=== PATIENT | male | born 1965 | race Caucasian/White ===

== ENCOUNTER → 2016-10-04 | Outpatient (CLI) | payer BC ==
[~2016-10-04] MED LIST: /CIPR75TA OR; /FENT50PA TD; /ROPI25TA PO; /TAMS4CA; /TAMS4CA PO; ACET500C PO; ACET65TA OR; ALLE25CA OR; ALLEGRA PO; ALLOPOW4 PO; AVOD0.5C; CIPR500T19; CLAR5CHW; CLAR5CHW OR; DARV100T; DICL0.1S7 TOP; DICY20TA2 OR; FISH1000 OR; FISHCAP PO; FLAG500T; FLAG500T OR; FLAXOIL3 OR; MEDR8TAB OR; MULTIVIT PO; NABU-42 PO; NABU500T; NABU500T OR; NABU500T PO; NASONEX; NEUR100C OR; OMEP20TA7 PO; OXYC1TAB16 PO; PRAV20TA2 OR; PRED5TAB PO; PRIL20CA PO; TERA5CAP3 PO; TRAM50TA2 OR; TRAZ50TA2 PO; ULTRTA OR; VIC; VICO5TAB OR; VICO5TAB PO; VICODIN PO; VIT D 2000 PO; VITA250L PO; VITA500T OR; [UNRECOGNIZED DRUG - OTHER]
--- NOTE | 2016-10-23 01:04 | ECWPNPC ---
PATIENT NAME: DARA VELARDE : 1965 GENDER: MALE VISIT DATE: 10/04/2016 DISCHARGE DATE: 10/04/16926 VISIT LOCKED DATE TIME: PHYSICIAN: DINESH MORRISON RESOURCE: DINESH MORRISON HISTORY OF PRESENT ILLNESS HISTORY OF PRESENT ILLNESS: PAIN THE PATIENT DESCRIBES THE PAIN... FALL RISK SCREENING: SCREENING :NO FALLS IN THE PAST YEAR TODAY'S VISIT: NOTES: RATES PAIN TODAY 6-7/10. RATES PAIN TODAY CONSTANT, ACHING, SHARP, THROBBING. PAIN IS CENTERED IN LOW BACK, KNEES, AND LOWER EXTREMITIES. HAS NOTED SOME SWELLING OF JOINTS OF THE HANDS BUT NOT OF FEET OR OTHER JOINTS. IS VERY STIFF AT TIMES AND MORNING OR AT THE END OF THE DAY ARE THE WORST IN TERMS OF THE PAIN. HAS NOT BEEN ON ANY STEROIDS IN SEVERAL MONTHS.. CURRENT MEDICATIONS TAKING ALLOPURINOL 300 MG TABLET 1 TABLET ORALLY ONCE A DAY TAKING CYANOCOBALAMIN 1000 MCG TABLET 1 TABLET ORALLY ONCE A DAY TAKING FISH OIL 1000 MG CAPSULE 1 CAPSULE ORALLY 2 TIMES A DAY TAKING OMEPRAZOLE 20 MG CAPSULE DELAYED RELEASE 1 CAP(S) ORALLY ONCE A DAY TAKING PRAVASTATIN SODIUM 20 MG TABLET 1 TABLET ORALLY ONCE A DAY TAKING ROPINIROLE HCL 1 MG TABLET ORALLY 3 TIMES A DAY TAKING TERAZOSIN HCL 5 MG TABLET 1 ORALLY ONCE A DAY TAKING VITAMIN D-3 1000 UNIT CAPSULE 1 CAPSULE ORALLY ONCE A DAY TAKING TRAZODONE HCL 50 MG TABLET 1 TABLET AT BEDTIME NEEDED ORALLY ONCE A DAY TAKING ACETAMINOPHEN 500 MG CAPSULE 1-2 TABLET NEEDED ORALLY Q 6 HRS PRN PAIN EGA=0727 MG/24 HOURS TAKING NABUMETONE 500 MG TABLET 1 TABLET ORALLY BID WITH FOOD TAKING PERCOCET 10-325 MG TABLET 1 TABLET NEEDED ORALLY EVERY 4 - 6 HRS MDD =4 TAKING MULTIVITAMIN ADULT - TABLET 1 TAB ORALLY DAILY NOT-TAKING PREDNISONE 10 MG TABLET 1 TABLET ORALLY TAKE 5 TAB X 3 DAY, 4 TAB X 3 DAY, 3 TABX 3 DAY 2 TABX 3 DAY, 1 TABX 3 DAYS TAKE WITH FOOD MEDICATION LIST REVIEWED AND RECONCILED WITH THE PATIENT PAST MEDICAL HISTORY GERD GOUT HIGH CHOLESTEROL HYPERTENSION ALLERGIES N.K.D.A. SOCIAL HISTORY GENERAL: PAIN CLINIC PFS, CLERGY, PUBLIC HEALTH REFERRALS CLERGY REFERRAL NEEDED?NO WAS THE PROVIDER NOTIFIED OF ANY PERTINENT INFO?NO PFS REFERRAL NEEDED?NO PUBLIC HEALTH REFERRAL NEEDED?NO PATIENT: ____. REVIEW OF SYSTEMS CONSTITUTIONAL: NEW UNEXPLAINABLE WEIGHT LOSS? HAS GAINED SOME WEIGHT OVER THE WINTER BUT IS WORKING ON A DIET PLAN TO DECREASE THIS . ANY CHANGE IN YOUR MEDICAL CONDITION? NO . CHILLS NO . FEVER NO . INFECTION: DO YOU HAVE NEW INFECTIONS? NO . DO YOU HAVE HISTORY OF MRSA? NO . MUSCULOSKELETAL: ANY NEW PATTERNS OF PAIN OR NUMBNESS? NO . GASTROENTEROLOGY: ANY NEW CHANGE IN BOWEL CONTROL? NO . GENITOURINARY: ANY NEW CHANGE IN BLADDER CONTROL? NO . IS THERE A CHANCE YOU COULD BE ? NO . HEMATOLOGY/LYMPH: DO YOU TAKE ANY BLOOD THINNERS? (FOR EXAMPLE- COUMADIN, PLAVIX, AGGRENOX, PLATEL, PRADAXA, OR XARELTO) NO . WHEN WAS YOUR LAST DOSE? DATE: TIME: . NEUROLOGY: HAVE YOU FALLEN IN THE PAST 6 MONTHS? NO . ANY NEW EXTREMITY NUMBNESS OR WEAKNESS? NO . CARDIOLOGY: DO YOU HAVE A PACEMAKER OR DEFIBRILLATOR? NO . CHEST PAIN PATIENT DENIES . RESPIRATORY: HAVE YOU BEEN SICK IN THE PAST WEEK? NO . FEVER NO . FLU LIKE SYMPTOMS? NO . COUGH NO . INTEGUMENTARY: DO YOU HAVE ANY RASHES OR OPEN SORES? NO . ALLERGIC/IMMUNO: ARE YOU ALLERGIC TO SHELLFISH OR IV DYE? NO . ANY NEW ALLERGIES? NO . PSYCHIATRIC: DO YOU HAVE THOUGHTS OF HURTING YOURSELF OR SOMEONE ELSE? NO . ARE YOU ABUSED, NEGLECTED, OR IN AN UNSAFE ENVIRONMENT? NO . ENDOCRINOLOGY: ARE YOU DIABETIC? NO . OTHER: DO YOU NEED ANY PRESCRIPTIONS? YES . IF YES, PLEASE LIST: PAIN MEDS, PERCOCET AND TYLENOL . ANY NEW PROBLEMS WITH YOUR MEDICATIONS? NO . WHEN DID YOU LAST EAT? ____ . WHEN DID YOU LAST DRINK? ____ . WHAT DID YOU LAST DRINK? ____ . NAME OF PERSON DRIVING YOU HOME? ____ . DO YOU HAVE ANY OTHER QUESTIONS OR CONCERNS NO . REVIEWED BY: PROVIDER: DINESH VITAL . VITAL SIGNS WT 207 LBS, HT 72 IN, BMI 28.07 INDEX, BP 148/68 MM HG, HR 80 /MIN, RR 18 /MIN, TEMP 98.8 F, OXYGEN SAT % 96, NA INITIALS KG 849, REVIEWED BY: CS. EXAMINATION GENERAL EXAMINATION: GENERAL APPEARANCE: OBESE. PSYCHALERT , ORIENTED X 3 , APPROPRIATE MOOD AND AFFECT , GOOD EYE CONTACT. LUNGS:CLEAR TO AUSCULTATION BILATERALLY. HEART:HEART RATE REGULAR. BACK:BILATERAL SI JOINT TENDERNESS. MUSCULOSKELETAL:MUSCLE STRENGTH TESTING 5/5 BILATERAL, TRIGGER POINTS:, ELICITED WITH PALPATION OVER LUMBAR PARAVERTEBRAL MUSCLES AND INTO THE SACRUM. RESTRICTION OF ROM IN THIS AREA. GAIT WIDEBASED, ANTALGIC. JOINTS:TENDERNESS OVER BILATERAL PIP JOINTS BOTH HANDS. NEUROLOGIC EXAM:POSITIVE TINELS RIGHT>LEFT AT WRIST. DECREASED SENSATION THUMB, 1ST, 2ND FINGER RIGHT SIDE. ASSESSMENTS INFLAMMATORY ARTHRITIS - M19.90 (PRIMARY) MYALGIA - M79.1 CHRONIC PRESCRIPTION OPIATE USE - Z79.891 TREATMENT INFLAMMATORY ARTHRITIS REFILL PREDNISONE TABLET, 10 MG, 1 TABLET, ORALLY, TAKE 5 TAB X 3 DAY, 4 TAB X 3 DAY, 3 TABX 3 DAY 2 TABX 3 DAY, 1 TABX 3 DAYS TAKE WITH FOOD, 30 DAY(S), 45, REFILLS 0 REFILL PERCOCET TABLET, 10-325 MG, 1 TABLET NEEDED, ORALLY, EVERY 4 - 6 HRS MDD =4, 30 DAY(S), 120, REFILLS 0 CLINICAL NOTES: ISTOP REGISTRY REVIEWED AND DEMNOSTRATES COMPLLIANCE. BRINGS IN MEDICATIONS WHICH IS APPROPRIATE FOR WHAT WAS DISPENSED. RECENT URINE TOXICOLOGY REVIEWED. NO UNAUTHORIZED MEDICATIONS. NO ILLICIT SUBSTANCES AND PRESCRIBED MEDICATIONS WERE PRESENT. PROCEDURE CODES FA211 ESTABILISHED PATIENT [facility] CHARGE DISPOSITION & COMMUNICATION FOLLOW UP 4 MONTHS ELECTRONICALLY SIGNED BY EDILSON ASENCIO ON 10/22/2016 AT 05:37 PM EDT DISCLAIMER : THIS IS A VISIT SUMMARY EXTRACTED FROM THE [employer] CHART. IT IS NOT A COPY OF THE [facility] [facility] PROGRESS NOTE. MTDD
== END ==
LOC: M PAIN 08:40
PROVIDERS: ATTEND Nurse Practitioner Family
DX: G89.29 Other chronic pain (principal); M54.5 Low back pain; M25.569 Pain in unspecified knee; M79.606 Pain in leg, unspecified; M19.90 Unspecified osteoarthritis, unspecified site; M79.1 Myalgia; K21.9 Gastro-esophageal reflux disease without esophagitis; M10.00 Idiopathic gout, unspecified site; E78.00 Pure hypercholesterolemia, unspecified; I10 Essential (primary) hypertension; Z79.1 Long term (current) use of non-steroidal anti-inflammatories (NSAID); Z79.891 Long term (current) use of opiate analgesic; Z79.899 Other long term (current) drug therapy

== ENCOUNTER → 2017-01-30 | Outpatient (CLI) | payer BC ==
--- NOTE | 2017-02-10 23:56 | ECWPNPC ---
PATIENT NAME: DARA VELARDE : 1965 GENDER: MALE VISIT DATE: 01/30/2017 DISCHARGE DATE: 01/30/17918 VISIT LOCKED DATE TIME: PHYSICIAN: DINESH MORRISON RESOURCE: DINESH MORRISON REASON FOR APPOINTMENT 1. BACK AND LEGS HISTORY OF PRESENT ILLNESS HISTORY OF PRESENT ILLNESS: PAIN THE PATIENT DESCRIBES THE PAIN... FALL RISK SCREENING: SCREENING :NO FALLS IN THE PAST YEAR TODAY'S VISIT: NOTES: RATES PAIN TODAY 6-7/10. DESCRIBES PAIN CONSTANT ACHING AND SHARP. PAIN DOES INVOLVE THE JINTS OF BACK, HIPS KNEES AND ANKLES. NOTES PREDNISONE TAPER IS WORKING WELL BUT THE TAPER OVER 5 DAYS WORKS THE BEST.. CURRENT MEDICATIONS TAKING ALLOPURINOL 300 MG TABLET 1 TABLET ORALLY ONCE A DAY TAKING CYANOCOBALAMIN 1000 MCG TABLET 1 TABLET ORALLY ONCE A DAY TAKING FISH OIL 1000 MG CAPSULE 1 CAPSULE ORALLY 2 TIMES A DAY TAKING OMEPRAZOLE 20 MG CAPSULE DELAYED RELEASE 1 CAP(S) ORALLY ONCE A DAY TAKING PRAVASTATIN SODIUM 20 MG TABLET 1 TABLET ORALLY ONCE A DAY TAKING ROPINIROLE HCL 1 MG TABLET ORALLY 3 TIMES A DAY TAKING TERAZOSIN HCL 5 MG TABLET 1 ORALLY ONCE A DAY TAKING VITAMIN D-3 1000 UNIT CAPSULE 1 CAPSULE ORALLY ONCE A DAY TAKING TRAZODONE HCL 50 MG TABLET 1 TABLET AT BEDTIME NEEDED ORALLY ONCE A DAY TAKING ACETAMINOPHEN 500 MG CAPSULE 1-2 TABLET NEEDED ORALLY Q 6 HRS PRN PAIN GIM=9444 MG/24 HOURS TAKING MULTIVITAMIN ADULT - TABLET 1 TAB ORALLY DAILY TAKING PERCOCET 10-325 MG TABLET 1 TABLET NEEDED ORALLY EVERY 4 - 6 HRS MDD =4 TAKING NABUMETONE 500 MG TABLET 1 TABLET ORALLY BID WITH FOOD NOT-TAKING PREDNISONE 10 MG TABLET 1 TABLET ORALLY TAKE 5 TAB X 3 DAY, 4 TAB X 3 DAY, 3 TABX 3 DAY 2 TABX 3 DAY, 1 TABX 3 DAYS TAKE WITH FOOD MEDICATION LIST REVIEWED AND RECONCILED WITH THE PATIENT PAST MEDICAL HISTORY GERD GOUT HIGH CHOLESTEROL HYPERTENSION ALLERGIES N.K.D.A. REVIEW OF SYSTEMS REVIEWED BY: PROVIDER: DINESH VITAL . CONSTITUTIONAL: ANY CHANGE IN YOUR MEDICAL CONDITION? MORE PAIN DUE TO WORKING 10-12 HR DAYS FOR PAST 2 MONTHS . CHILLS NO . FEVER NO . INFECTION: DO YOU HAVE NEW INFECTIONS? NO . DO YOU HAVE HISTORY OF MRSA? NO . MUSCULOSKELETAL: ANY NEW PATTERNS OF PAIN OR NUMBNESS? NO . GASTROENTEROLOGY: ANY NEW CHANGE IN BOWEL CONTROL? NO . GENITOURINARY: ANY NEW CHANGE IN BLADDER CONTROL? NO . IS THERE A CHANCE YOU COULD BE ? NO . HEMATOLOGY/LYMPH: DO YOU TAKE ANY BLOOD THINNERS? (FOR EXAMPLE- COUMADIN, PLAVIX, AGGRENOX, PLATEL, PRADAXA, OR XARELTO) NO . WHEN WAS YOUR LAST DOSE? DATE: TIME: . NEUROLOGY: HAVE YOU FALLEN IN THE PAST 6 MONTHS? NO . ANY NEW EXTREMITY NUMBNESS OR WEAKNESS? NO . CARDIOLOGY: DO YOU HAVE A PACEMAKER OR DEFIBRILLATOR? NO . RESPIRATORY: HAVE YOU BEEN SICK IN THE PAST WEEK? NO . FEVER NO . FLU LIKE SYMPTOMS? NO . COUGH NO . INTEGUMENTARY: DO YOU HAVE ANY RASHES OR OPEN SORES? NO . ALLERGIC/IMMUNO: ARE YOU ALLERGIC TO SHELLFISH OR IV DYE? NO . ANY NEW ALLERGIES? NO . PSYCHIATRIC: DO YOU HAVE THOUGHTS OF HURTING YOURSELF OR SOMEONE ELSE? NO . ARE YOU ABUSED, NEGLECTED, OR IN AN UNSAFE ENVIRONMENT? NO . ENDOCRINOLOGY: ARE YOU DIABETIC? NO . OTHER: DO YOU NEED ANY PRESCRIPTIONS? YES . IF YES, PLEASE LIST: PERCOCET AND TRAZODONE . ANY NEW PROBLEMS WITH YOUR MEDICATIONS? NO . WHEN DID YOU LAST EAT? ____ . WHEN DID YOU LAST DRINK? ____ . WHAT DID YOU LAST DRINK? ____ . NAME OF PERSON DRIVING YOU HOME? ____ . DO YOU HAVE ANY OTHER QUESTIONS OR CONCERNS NO . VITAL SIGNS WT 303.8 LBS, HT 72 IN, BMI 41.20 INDEX, BP 131/81 MM HG, HR 84 /MIN, RR 18 /MIN, TEMP 96.8 F, OXYGEN SAT % 95%, NA INITIALS [id number], REVIEWED BY: NL. EXAMINATION GENERAL EXAMINATION: GENERAL APPEARANCE: OBESE. PSYCHALERT , ORIENTED X 3 , APPROPRIATE MOOD AND AFFECT , GOOD EYE CONTACT. LUNGS:CLEAR TO AUSCULTATION BILATERALLY. HEART:HEART RATE REGULAR. BACK:BILATERAL SI JOINT TENDERNESS. MUSCULOSKELETAL:MUSCLE STRENGTH TESTING 5/5 BILATERAL, TRIGGER POINTS:, ELICITED WITH PALPATION OVER LUMBAR PARAVERTEBRAL MUSCLES AND INTO THE SACRUM. RESTRICTION OF ROM IN THIS AREA. GAIT WIDEBASED, ANTALGIC. JOINTS:TENDERNESS OVER BILATERAL PIP JOINTS BOTH HANDS. NEUROLOGIC EXAM:POSITIVE TINELS RIGHT>LEFT AT WRIST. DECREASED SENSATION THUMB, 1ST, 2ND FINGER RIGHT SIDE. ASSESSMENTS INFLAMMATORY ARTHRITIS - M19.90 (PRIMARY) MYALGIA - M79.1 CHRONIC PRESCRIPTION OPIATE USE - Z79.891 TREATMENT INFLAMMATORY ARTHRITIS REFILL PERCOCET TABLET, 10-325 MG, 1 TABLET NEEDED, ORALLY, EVERY 4 - 6 HRS MDD =4, 30 DAY(S), 120, REFILLS 0 REFILL TRAZODONE HCL TABLET, 50 MG, 1 TABLET AT BEDTIME NEEDED, ORALLY, ONCE A DAY, 30 DAYS, 30, REFILLS 5 NOTES: UTOX TODAYWILL REPEAT PREDNISONE TAPER END OF MARCH - DO 15 DAY TAPER AT THE TIME. CLINICAL NOTES: ISTOP REGISTRY REVIEWED AND DEMNOSTRATES COMPLLIANCE. BRINGS IN MEDICATIONS WHICH IS APPROPRIATE FOR WHAT WAS DISPENSED. RECENT URINE TOXICOLOGY REVIEWED. NO UNAUTHORIZED MEDICATIONS. NO ILLICIT SUBSTANCES AND PRESCRIBED MEDICATIONS WERE PRESENT. PROCEDURE CODES FA211 ESTABILISHED PATIENT [facility] CHARGE DISPOSITION & COMMUNICATION FOLLOW UP 3 MONTHS (REASON: BACK/JOINT PAIN) ELECTRONICALLY SIGNED BY EDILSON ASENCIO ON 02/10/2017 AT 03:44 PM EDT DISCLAIMER : THIS IS A VISIT SUMMARY EXTRACTED FROM THE [employer] CHART. IT IS NOT A COPY OF THE [employer] PROGRESS NOTE. KEYLA
== END ==
LOC: M PAIN 08:40
PROVIDERS: ATTEND Nurse Practitioner Family
DX: G89.29 Other chronic pain (principal); M19.90 Unspecified osteoarthritis, unspecified site; M79.1 Myalgia; K21.9 Gastro-esophageal reflux disease without esophagitis; M10.9 Gout, unspecified; E78.00 Pure hypercholesterolemia, unspecified; E66.9 Obesity, unspecified; I10 Essential (primary) hypertension; Z79.899 Other long term (current) drug therapy; Z79.891 Long term (current) use of opiate analgesic; Z68.41 Body mass index [BMI] 40.0-44.9, adult

== ENCOUNTER → 2017-06-05 | Outpatient (CLI) | payer BC | LOC: M PAIN 08:30 | DX: G89.29 Other chronic pain (principal); M19.90 Unspecified osteoarthritis, unspecified site; M79.1 Myalgia; K21.9 Gastro-esophageal reflux disease without esophagitis; M10.9 Gout, unspecified; E78.00 Pure hypercholesterolemia, unspecified; I10 Essential (primary) hypertension; Z79.891 Long term (current) use of opiate analgesic; Z79.899 Other long term (current) drug therapy | CPT/HCPCS: G0463 ==

== ENCOUNTER → 2017-10-04 | Outpatient (CLI) | payer BC | END | disposition home or self-care (01) | LOC: M PAIN 08:30 | DX: G89.29 Other chronic pain (principal); M19.90 Unspecified osteoarthritis, unspecified site; M79.1 Myalgia; K21.9 Gastro-esophageal reflux disease without esophagitis; M10.9 Gout, unspecified; E78.00 Pure hypercholesterolemia, unspecified; I10 Essential (primary) hypertension; Z79.899 Other long term (current) drug therapy | CPT/HCPCS: G0463 ==

== ENCOUNTER → 2018-07-01 | Outpatient (CLI) | payer BC ==
[~2018-07-01] MED LIST changes: +OXYC10TA3 PO; -OXYC1TAB16 PO
--- NOTE | 2018-07-12 00:40 | ECWPNPC ---
PATIENT NAME: DARA VELARDE : 1965 GENDER: MALE VISIT DATE: 07/01/2018 DISCHARGE DATE: 07/01/18 1025 VISIT LOCKED DATE TIME: PHYSICIAN: LUIZ NORIEGA RESOURCE: LUIZ NORIEGA REASON FOR APPOINTMENT 1. SW PT,JOINT PAIN HISTORY OF PRESENT ILLNESS HISTORY OF PRESENT ILLNESS: HERE FOR F/U OF GENERALIZED ARTHROPATHY AND NEUROPATHY.WAS STARTED ON GABAPENTIN 300MG AT HS AT LAST VISIT.THIS IS HELPING.CONTINUES WITH DAYTIME LEG PAIN.RATING LEG PAIN 6/10 VAS. PAIN THE PATIENT DESCRIBES THE PAIN... FALL RISK SCREENING: SCREENING :NO FALLS IN THE PAST YEAR CURRENT MEDICATIONS TAKING ALLOPURINOL 300 MG TABLET 1 TABLET ORALLY ONCE A DAY TAKING CYANOCOBALAMIN 1000 MCG TABLET 1 TABLET ORALLY ONCE A DAY TAKING FISH OIL 1000 MG CAPSULE 1 CAPSULE ORALLY 2 TIMES A DAY TAKING OMEPRAZOLE 20 MG CAPSULE DELAYED RELEASE 1 CAP(S) ORALLY ONCE A DAY TAKING PRAVASTATIN SODIUM 20 MG TABLET 1 TABLET ORALLY ONCE A DAY TAKING ROPINIROLE HCL 1 MG TABLET ORALLY 3 TIMES A DAY TAKING TERAZOSIN HCL 5 MG TABLET 1 ORALLY ONCE A DAY TAKING VITAMIN D-3 1000 UNIT CAPSULE 1 CAPSULE ORALLY ONCE A DAY TAKING ACETAMINOPHEN 500 MG CAPSULE 1-2 TABLET NEEDED ORALLY Q 6 HRS PRN PAIN WDN=8967 MG/24 HOURS TAKING MULTIVITAMIN ADULT - TABLET 1 TAB ORALLY DAILY TAKING NABUMETONE 500 MG TABLET 1 TABLET ORALLY BID WITH FOOD TAKING TRAZODONE HCL 50 MG TABLET 1 TABLET AT BEDTIME NEEDED ORALLY ONCE A DAY TAKING GABAPENTIN 300 MG CAPSULE 1 CAPSULE ORALLY ONCE A DAY TAKING PERCOCET 10-325 MG TABLET 1 TABLET NEEDED ORALLY EVERY 4 - 6 HRS MDD =4 NOT-TAKING PREDNISONE 10 MG TABLET 1 TABLET ORALLY TAKE 5 TAB DAILY X 5 DAY, 4 TAB DAILY 5 DAY, 3 TAB X 5 DAY 2 TAB X 5 DAY 1 TAB X 5 DAY DISCONTINUED PREDNISONE 10 MG TABLET 1 TABLET ORALLY TAKE 5 TAB X 3 DAY, 4 TAB X 3 DAY, 3 TABX 3 DAY 2 TABX 3 DAY, 1 TABX 3 DAYS TAKE WITH FOOD MEDICATION LIST REVIEWED AND RECONCILED WITH THE PATIENT PAST MEDICAL HISTORY GERD GOUT HIGH CHOLESTEROL HYPERTENSION NECK AND BACK PAIN CARPAL TUNNEL SYNDROME NUMBNESS ARMS AND LEGS ALLERGIES N.K.D.A. SURGICAL HISTORY ORAL SURGERY TIMES 2 PERFORATED COLON HERNIA REPAIR FRACTURED FEMUR RODS PLATE AND SCREWS IN RT ANKLE BILATERAL CARPAL TUNNEL REPAIR PLATE IN JAW FAMILY HISTORY FATHER: MOTHER: ALIVE 1DAUGHTER(S) . 07/01/18 PT WILL BRING IN FAMILY HISTORY. SOCIAL HISTORY GENERAL: TOBACCO USE ARE YOU A:NONSMOKER ALCOHOL SCREENING DID YOU HAVE A DRINK CONTAINING ALCOHOL IN THE PAST YEAR?YES HOW OFTEN DID YOU HAVE A DRINK CONTAINING ALCOHOL IN THE PAST YEAR?MONTHLY OR LESS (1 POINT) HOW MANY DRINKS DID YOU HAVE ON A TYPICAL DAY WHEN YOU WERE DRINKING IN THE PAST YEAR?3 OR 4 (1 POINT) HOW OFTEN DID YOU HAVE SIX OR MORE DRINKS ON ONE OCCASION IN THE PAST YEAR?NEVER (0 POINTS) POINTS2 INTERPRETATIONNEGATIVE RECREATIONAL DRUG USE DRUG USE?NO CAFFEINE CAFFEINE USE?YES HOW OFTEN AND HOW MUCH? 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 N/A HAS THE PATIENT BEEN EDUCATED REGARDING HIS/HER PLAN OF CARE?YES HAS THE PATIENT BEEN EDUCATED REGARDING PAIN, THE RISK FOR PAIN, THE IMPORTANCE OF EFFECTIVE PAIN MANAGEMENT, AND THE PAIN ASSESSMENT PROCESS?YES ADVANCE DIRECTIVE HEALTH CARE PROXY? YES, NAME OF HCP CANELO VELARDE, CONTACT # FOR HCP [phone], DO YOU HAVE A COPY WITH YOU? NO, DO YOU HAVE A DNR? NO, WOULD YOU LIKE MORE INFORMATION? NO, LIVING WILL? NO, WOULD YOU LIKE MORE INFORMATION? NO, POWER OF FOLDER SEAMER AUTOMATIC? NO, WOULD YOU LIKE MORE INFORMATION? NO. 07/01/18 REVIEWED WITH PT. AD. HOSPITALIZATION/MAJOR DIAGNOSTIC PROCEDURE SURGERIES REVIEW OF SYSTEMS REVIEWED BY: PROVIDER: LUIZ VITAL . CONSTITUTIONAL: ANY CHANGE IN YOUR MEDICAL CONDITION? NO . CHILLS NO . FEVER NO . INFECTION: DO YOU HAVE NEW INFECTIONS? NO . DO YOU HAVE HISTORY OF MRSA? NO . MUSCULOSKELETAL: ANY NEW PATTERNS OF PAIN OR NUMBNESS? YES, HE THINKS THE GABAPENTIN IS MAKING HIM NOTICE THE NUMBNESS MORE . GASTROENTEROLOGY: ANY NEW CHANGE IN BOWEL CONTROL? NO . GENITOURINARY: ANY NEW CHANGE IN BLADDER CONTROL? NO . IS THERE A CHANCE YOU COULD BE ? NO . HEMATOLOGY/LYMPH: DO YOU TAKE ANY BLOOD THINNERS? (FOR EXAMPLE- COUMADIN, PLAVIX, AGGRENOX, PLATEL, PRADAXA, OR XARELTO) NO . WHEN WAS YOUR LAST DOSE? DATE: TIME: . NEUROLOGY: HAVE YOU FALLEN IN THE PAST 12 MONTHS? NO . ANY NEW EXTREMITY NUMBNESS OR WEAKNESS? NO . CARDIOLOGY: DO YOU HAVE A PACEMAKER OR DEFIBRILLATOR? NO . RESPIRATORY: HAVE YOU BEEN SICK IN THE PAST WEEK? NO . FEVER NO . FLU LIKE SYMPTOMS? NO . COUGH NO . INTEGUMENTARY: DO YOU HAVE ANY RASHES OR OPEN SORES? NO . ALLERGIC/IMMUNO: ARE YOU ALLERGIC TO IV DYE? NO . ANY NEW ALLERGIES? NO . PSYCHIATRIC: DO YOU HAVE THOUGHTS OF HURTING YOURSELF OR SOMEONE ELSE? NO . ARE YOU ABUSED, NEGLECTED, OR IN AN UNSAFE ENVIRONMENT? NO . ENDOCRINOLOGY: ARE YOU DIABETIC? NO . OTHER: DO YOU NEED ANY PRESCRIPTIONS? YES . IF YES, PLEASE LIST: PERCOCET . ANY NEW PROBLEMS WITH YOUR MEDICATIONS? NO . WHEN DID YOU LAST EAT? ____ . WHEN DID YOU LAST DRINK? ____ . WHAT DID YOU LAST DRINK? ____ . NAME OF PERSON DRIVING YOU HOME? ____ . DO YOU HAVE ANY OTHER QUESTIONS OR CONCERNS NO . VITAL SIGNS WT 303 LBS, HT 72 IN, BMI 41.09 INDEX, BP 162/93 MM HG, HR 76 /MIN, RR 18 /MIN, TEMP 97.8 F, OXYGEN SAT % 98%, SAFE IN ENV? (Y/N) Y, NA INITIALS AW 0908, REVIEWED BY: AD. EXAMINATION GENERAL EXAMINATION: GENERAL APPEARANCE: OBESE. PSYCHALERT , ORIENTED X 3 , APPROPRIATE MOOD AND AFFECT , GOOD EYE CONTACT. LUNGS:CLEAR TO AUSCULTATION BILATERALLY. HEART:HEART RATE REGULAR. BACK:BILATERAL SI JOINT TENDERNESS. MUSCULOSKELETAL:MUSCLE STRENGTH TESTING 5/5 BILATERAL, TRIGGER POINTS:, ELICITED WITH PALPATION OVER LUMBAR PARAVERTEBRAL MUSCLES. RESTRICTION OF ROM IN THIS AREA. . JOINTS:TENDERNESS OVER BILATERAL PIP JOINTS BOTH HANDS. ASSESSMENTS INFLAMMATORY ARTHRITIS - M19.90 (PRIMARY) TREATMENT INFLAMMATORY ARTHRITIS CONTINUE NABUMETONE TABLET, 500 MG, 1 TABLET, ORALLY, BID WITH FOOD CONTINUE TRAZODONE HCL TABLET, 50 MG, 1 TABLET AT BEDTIME NEEDED, ORALLY, ONCE A DAY CONTINUE GABAPENTIN CAPSULE, 300 MG, 1 CAPSULE, ORALLY, ONCE A DAY REFILL PERCOCET TABLET, 10-325 MG, 1 TABLET NEEDED, ORALLY, EVERY 4 - 6 HRS MDD =4, 30 DAY(S), 120, REFILLS 0 START GABAPENTIN CAPSULE, 100 MG, 1 CAPSULE, ORALLY, 1 IN AM,1 IN AFTRNOON, 30 DAY(S), 60, REFILLS 2 NOTES: ISTOP REGISTRY REVIEWED AND DEMONSTRATES COMPLLIANCE. BRINGS IN MEDICATIONS WHICH IS APPROPRIATE FOR WHAT WAS DISPENSED. RECENT URINE TOXICOLOGY REVIEWED. NO UNAUTHORIZED MEDICATIONS. NO ILLICIT SUBSTANCES AND PRESCRIBED MEDICATIONS WERE PRESENT.RISKS AND BENEFITS OF NARCOTIC/OPIOD MEDICATIONS WERE REVIEWED WITH PATIENT - THIS INCLUDES BUT IS NOT LIMITED TO RISK OF DEPENDANCE/DEVELOPMENT OF ADDICTION, MOOD DISTURBANCE AND DEPRESSION, OSTEOPOROSIS, HORMONAL AND LABIDAL CHANGES, RESPIRATORY DEPRESSION AND . PATIENT IS ADVISED NOT TO DRIVE OR DRINK ALCOHOL WHILE ON THESE MEDICATIONS, , [facility] NARCOTIC AGREEMENT WAS UPDATED REVIEWED AND SIGNED TODAY BY THE PATIENT. SEE ATTACHED DOCUMENT FOR FULL DETAILS; SPECIFIC ISSUES WERE REVIEWED: 1) KEEP PAIN MEDS IN THEIR ORIGINAL BOTTLES AND ANY WEEKLY PLANNERS ARE TO BE BROUGHT TO THE PAIN CENTER AT EVERY VISIT. 2) THE PATIENT IS NOT TO INCREASE DOSING OR TIMING OF THEIR PAIN MEDICATION WITHOUT SPECIFIC DIRECTION OF THEIR PAIN CENTERPROVIDER (NOT ER OR OTHER PROVIDERS). 3) ALL PAIN MEDS ARE TO BE KEPT SECURED, IN A LOCKED BOX. 4) NO PAIN MEDS ARE TO BE SHARED WITH ANY OTHER PERSON FOR ANY REASON. 5) NO PAIN MEDS MAY BE TAKEN FROM ANY FRIENDS OR RELATIVES FOR ANY REASON 6) NO MEDS OR SUBSTANCES WHICH ARE NOT LEGAL ARE TO BE USED- NO MARIJUANA, NO COCAINE, AMPHETAMINES, HEROIN, OR OTHERS ARE EVER TO BE USED. 7)URINE TESTING IS DONE TO ACCOUNT FOR MEDS AND SUBSTANCES BEING TAKEN AND WILL BE DONE RANDOMLY. PROCEDURE CODES FA211 ESTABILISHED PATIENT [facility] CHARGE DISPOSITION & COMMUNICATION FOLLOW UP 2 MONTHS ELECTRONICALLY SIGNED BY ZAHRAA SHAW ON 07/11/2018 AT 08:47 AM EST DISCLAIMER : THIS IS A VISIT SUMMARY EXTRACTED FROM THE [employer] CHART. IT IS NOT A COPY OF THE [employer] PROGRESS NOTE. MTDD
== END ==
LOC: M PAIN 09:00
PROVIDERS: ATTEND Nurse Practitioner Family
DX: M15.0 Primary generalized (osteo)arthritis (principal); G62.9 Polyneuropathy, unspecified; I10 Essential (primary) hypertension; E78.00 Pure hypercholesterolemia, unspecified; K21.9 Gastro-esophageal reflux disease without esophagitis; E66.01 Morbid (severe) obesity due to excess calories; Z68.41 Body mass index [BMI] 40.0-44.9, adult; Z79.899 Other long term (current) drug therapy; Z87.39 Personal history of other diseases of the musculoskeletal system and connective tissue

== ENCOUNTER → 2018-09-08 | Outpatient (CLI) | payer BC ==
--- NOTE | 2018-09-10 01:57 | ECWPNPC ---
PATIENT NAME: DARA VELRADE : 1965 GENDER: MALE VISIT DATE: 09/08/2018 DISCHARGE DATE: 09/08/18 1026 VISIT LOCKED DATE TIME: PHYSICIAN: GRAZYNA DEL REAL RESOURCE: GRAZYNA DEL REAL REASON FOR APPOINTMENT 1. JOINT PAIN HISTORY OF PRESENT ILLNESS HISTORY OF PRESENT ILLNESS: PAIN THE PATIENT DESCRIBES THE PAINDURING THE LAST MONTH SEVERITY - PAIN SCORE OF6/10 54 YR OLD MALE WITH HX OF CHRONIC GENERALIZED PAIN IN LOWER BACK, SHOULDER, KNEES. HE SAYS HIS PAIN IN LOWER BACK HAS BEEN INCREASING IN THE LAST FEW WEEKS. HE SAYS HE HAS BEEN TRAETED WITH PREDNISONE IN THE PAST WITH GOOD RESULTS. FALL RISK SCREENING: SCREENING :NO FALLS REPORTED IN THE LAST YEAR CURRENT MEDICATIONS TAKING ALLOPURINOL 300 MG TABLET 1 TABLET ORALLY ONCE A DAY TAKING CYANOCOBALAMIN 1000 MCG TABLET 1 TABLET ORALLY ONCE A DAY TAKING FISH OIL 1000 MG CAPSULE 1 CAPSULE ORALLY 2 TIMES A DAY TAKING OMEPRAZOLE 20 MG CAPSULE DELAYED RELEASE 1 CAP(S) ORALLY ONCE A DAY TAKING PRAVASTATIN SODIUM 20 MG TABLET 1 TABLET ORALLY ONCE A DAY TAKING ROPINIROLE HCL 1 MG TABLET ORALLY 3 TIMES A DAY TAKING TERAZOSIN HCL 5 MG TABLET 1 ORALLY ONCE A DAY TAKING VITAMIN D-3 1000 UNIT CAPSULE 1 CAPSULE ORALLY ONCE A DAY TAKING ACETAMINOPHEN 500 MG CAPSULE 1-2 TABLET NEEDED ORALLY Q 6 HRS PRN PAIN HXX=1591 MG/24 HOURS TAKING MULTIVITAMIN ADULT - TABLET 1 TAB ORALLY DAILY TAKING NABUMETONE 500 MG TABLET 1 TABLET ORALLY BID WITH FOOD TAKING TRAZODONE HCL 50 MG TABLET 1 TABLET AT BEDTIME NEEDED ORALLY ONCE A DAY TAKING PERCOCET 10-325 MG TABLET 1 TABLET NEEDED ORALLY EVERY 4 - 6 HRS MDD =4 TAKING GABAPENTIN 100 MG CAPSULE 1 CAPSULE ORALLY 1 IN AM,1 IN AFTRNOON TAKING GABAPENTIN 300 MG CAPSULE 1 CAPSULE ORALLY ONCE A DAY NOT-TAKING PREDNISONE 10 MG TABLET 1 TABLET ORALLY TAKE 5 TAB DAILY X 5 DAY, 4 TAB DAILY 5 DAY, 3 TAB X 5 DAY 2 TAB X 5 DAY 1 TAB X 5 DAY MEDICATION LIST REVIEWED AND RECONCILED WITH THE PATIENT PAST MEDICAL HISTORY GERD GOUT HIGH CHOLESTEROL HYPERTENSION NECK AND BACK PAIN CARPAL TUNNEL SYNDROME NUMBNESS ARMS AND LEGS ALLERGIES N.K.D.A. SURGICAL HISTORY ORAL SURGERY TIMES 2 PERFORATED COLON HERNIA REPAIR FRACTURED FEMUR RODS PLATE AND SCREWS IN RT ANKLE BILATERAL CARPAL TUNNEL REPAIR PLATE IN JAW FAMILY HISTORY FATHER: MOTHER: [facility] . PT WILL BRING IN FAMILY HISTORY. SOCIAL HISTORY GENERAL: TOBACCO USE ARE YOU A:NONSMOKER ALCOHOL SCREENING DID YOU HAVE A DRINK CONTAINING ALCOHOL IN THE PAST YEAR?YES HOW OFTEN DID YOU HAVE A DRINK CONTAINING ALCOHOL IN THE PAST YEAR?MONTHLY OR LESS (1 POINT) HOW MANY DRINKS DID YOU HAVE ON A TYPICAL DAY WHEN YOU WERE DRINKING IN THE PAST YEAR?3 OR 4 (1 POINT) HOW OFTEN DID YOU HAVE SIX OR MORE DRINKS ON ONE OCCASION IN THE PAST YEAR?NEVER (0 POINTS) POINTS2 INTERPRETATIONNEGATIVE RECREATIONAL DRUG USE DRUG USE?NO CAFFEINE CAFFEINE USE?YES HOW OFTEN AND HOW MUCH? 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 N/A HAS THE PATIENT BEEN EDUCATED REGARDING HIS/HER PLAN OF CARE?YES HAS THE PATIENT BEEN EDUCATED REGARDING PAIN, THE RISK FOR PAIN, THE IMPORTANCE OF EFFECTIVE PAIN MANAGEMENT, AND THE PAIN ASSESSMENT PROCESS?YES ADVANCE DIRECTIVE ADVANCE DIRECTIVE DISCUSSED WITH PATIENT:YES HCP IS CANELO VELARDE, PHONE NUMBER [phone] 07/01/18 REVIEWED WITH PT. [id number] REVIEWED WITH PT BATSHEVA. HOSPITALIZATION/MAJOR DIAGNOSTIC PROCEDURE SURGERIES REVIEW OF SYSTEMS REVIEWED BY: PROVIDER: PEDRO Grant CONSTITUTIONAL: ANY CHANGE IN YOUR MEDICAL CONDITION? NO . CHILLS NO . FEVER NO . INFECTION: DO YOU HAVE NEW INFECTIONS? NO . DO YOU HAVE HISTORY OF MRSA? NO . MUSCULOSKELETAL: ANY NEW PATTERNS OF PAIN OR NUMBNESS? PT REPORTS A PAIN IN HIS LOW BACK THAT EXTENDS DOWN ONE LEG (SOMETIMES HIS RIGHT, BUT USUALLY HIS LEFT) THAT HAS STARTED OVER THE LAST SIX MONTHS . GASTROENTEROLOGY: ANY NEW CHANGE IN BOWEL CONTROL? NO . GENITOURINARY: ANY NEW CHANGE IN BLADDER CONTROL? NO . IS THERE A CHANCE YOU COULD BE ? NO . HEMATOLOGY/LYMPH: DO YOU TAKE ANY BLOOD THINNERS? (FOR EXAMPLE- COUMADIN, PLAVIX, AGGRENOX, PLATEL, PRADAXA, OR XARELTO) NO . WHEN WAS YOUR LAST DOSE? DATE: TIME: . NEUROLOGY: HAVE YOU FALLEN IN THE PAST 12 MONTHS? NO . ANY NEW EXTREMITY NUMBNESS OR WEAKNESS? NO . CARDIOLOGY: DO YOU HAVE A PACEMAKER OR DEFIBRILLATOR? NO . RESPIRATORY: HAVE YOU BEEN SICK IN THE PAST WEEK? NO . FEVER NO . FLU LIKE SYMPTOMS? NO . COUGH NO . INTEGUMENTARY: DO YOU HAVE ANY RASHES OR OPEN SORES? NO . ALLERGIC/IMMUNO: ARE YOU ALLERGIC TO IV DYE? NO . ANY NEW ALLERGIES? NO . PSYCHIATRIC: DO YOU HAVE THOUGHTS OF HURTING YOURSELF OR SOMEONE ELSE? NO . ARE YOU ABUSED, NEGLECTED, OR IN AN UNSAFE ENVIRONMENT? NO . ENDOCRINOLOGY: ARE YOU DIABETIC? NO . OTHER: DO YOU NEED ANY PRESCRIPTIONS? YES PERCOCET . IF YES, PLEASE LIST: ____PERCOCET . ANY NEW PROBLEMS WITH YOUR MEDICATIONS? NO . WHEN DID YOU LAST EAT? ____ . WHEN DID YOU LAST DRINK? ____ . WHAT DID YOU LAST DRINK? ____ . NAME OF PERSON DRIVING YOU HOME? ____ . DO YOU HAVE ANY OTHER QUESTIONS OR CONCERNS WOULD LIKE TO DISCUSS PREDNISONE TAPER . VITAL SIGNS WT 295.8 LBS, HT 72 IN, BMI 40.11 INDEX, BP 166/81 MM HG, HR 78 /MIN, RR 18 /MIN, TEMP 98.6 F, OXYGEN SAT % 97%, NA INITIALS AW 0859. EXAMINATION GENERAL EXAMINATION: GENERAL APPEARANCE:NO ACUTE DISTRESS, WELL NOURISHED AND HYDRATED. PSYCHAPPROPRIATE MOOD AND AFFECT . LUNGS:CLEAR TO AUSCULTATION BILATERALLY, NO WHEEZES, RHONCHI, RALES. HEART:NO MURMURS, REGULAR RATE AND RHYTHM. BACK: UNABLE TO WALK ON TOES. LIMITED ROM,SLR NEGATIVE BILATERAL. ASSESSMENTS LUMBAR DISC DISPLACEMENT WITHOUT MYELOPATHY - M51.26 (PRIMARY) CHRONIC PRESCRIPTION OPIATE USE - Z79.899 TREATMENT LUMBAR DISC DISPLACEMENT WITHOUT MYELOPATHY START PREDNISONE TABLET, 10 MG, 1 TABLET, ORALLY, 5 TABSX 5 DAYS, 4 TABS X 5 DAYS, 3 TABSX 5DAYS, 2 TABS X5 DAYS, 1 TABX5 DAYS, 25 DAYS, 75, REFILLS 0 CONTINUE PERCOCET TABLET, 10-325 MG, 1 TABLET NEEDED, ORALLY, EVERY 4 - 6 HRS MDD =4, 30 DAYS, 120, REFILLS 0 CLINICAL NOTES: PATIENT IS REQUESTING TREATMENT WITH PREDNISONE THAT WAS DONE LAST YEAR.HE SAYS THIS IS THE ONLY MEDICATION THAT TREATS HIS PAIN FLARE UP.PATIENT IS VERY UPSET DURING CONSULTATION AND DEMANDING. I EXPLAINED THE SIDE EFFECTS OF PROLONGED STEROID USE. PATIENT ADVISED TO READ THE SIDE EFFECTS OF PATIET INFORMATION SHEET AND STRONGLY URGED TO SEEK MEDICATION ATTENITINO IF HE NOTICES: ORAL BLEEDING, CHEST PAIN, FEVER OR BLEEDIING FROM ANY OTHER ORGAN.ISTOP REGISTRY REVIEWED AND DEMONSTRATES COMPLLIANCE. (REF #[id number] ) BRINGS IN MEDICATIONS WHICH IS APPROPRIATE FOR WHAT WAS DISPENSED. RECENT URINE TOXICOLOGY REVIEWED. NO UNAUTHORIZED MEDICATIONS. NO ILLICIT SUBSTANCES AND PRESCRIBED MEDICATIONS WERE PRESENT. URINE TOX TODAY, RISKS AND BENEFITS OF NARCOTIC/OPIOD MEDICATIONS WERE REVIEWED WITH PATIENT - THIS INCLUDES BUT IS NOT LIMITED TO RISK OF DEPENDANCE/DEVELOPMENT OF ADDICTION, MOOD DISTURBANCE AND DEPRESSION, OSTEOPOROSIS, HORMONAL AND LABIDAL CHANGES, RESPIRATORY DEPRESSION AND . PATIENT IS ADVISED NOT TO DRIVE OR DRINK ALCOHOL WHILE ON THESE MEDICATIONSSIDEEFFECTS OF PREDNISONE DOSCUSSED IN DEPTH. PREVENTIVE MEDICINE PAIN CLINIC TEACHING: MEDICATIONS PREDNISONE TAPER REVIEWED WITH PT, INFORMATION PRINTED AND REVIEWED WITH PATIENT, PT VERBALIZES UNDERSTANDING OF MEDICATION USE AND SIDE EFFECTS. PROCEDURE CODES FA211 ESTABILISHED PATIENT [facility] CHARGE DISPOSITION & COMMUNICATION FOLLOW UP 3 MONTHS ELECTRONICALLY SIGNED BY ZAHRAA LAINEZ ON 09/09/2018 AT 08:45 AM EDT DISCLAIMER : THIS IS A VISIT SUMMARY EXTRACTED FROM THE [employer] CHART. IT IS NOT A COPY OF THE [employer] PROGRESS NOTE. MTDD
== END ==
LOC: M PAIN 08:45
PROVIDERS: ATTEND Nurse Practitioner Family
DX: M51.26 Other intervertebral disc displacement, lumbar region (principal); G89.29 Other chronic pain; K21.9 Gastro-esophageal reflux disease without esophagitis; Z86.39 Personal history of other endocrine, nutritional and metabolic disease; E78.00 Pure hypercholesterolemia, unspecified; I10 Essential (primary) hypertension; E66.01 Morbid (severe) obesity due to excess calories; Z68.41 Body mass index [BMI] 40.0-44.9, adult; Z79.899 Other long term (current) drug therapy

== ENCOUNTER 2019-03-27 13:14 | Emergency (ER) | payer OTHER, BC ==
[~2019-03-27] VITALS: Ht 182.9 cm; Wt 131.9 kg
[~2019-03-27 13:14] MED LIST changes: -/FENT50PA TD; -/ROPI25TA PO; -/TAMS4CA; -/TAMS4CA PO; +FENT1DIS15 TD; +FLOM0.4C39; +FLOM0.4C39 PO; +REQU1TAB14 PO
[2019-03-27] MEDS ORDERED: ROPI1TAB PO (13:23)
[2019-03-27] MEDS ORDERED: GABA-1171 PO (13:23)
[2019-03-27] MEDS ORDERED: GABA-843 PO (13:23)
--- NOTE | 2019-03-27 14:38 | REP ---
Eight views cervical spine: 03/28/2019. Indication: Cervical spine trauma. Comparison: None. Findings: There is no evidence of acute fracture, subluxation or dislocation. There is no instability on the dynamic testing. The vertebral body alignment is anatomic. Surgical clips as well as mandibular plate and screw fixation are noted. The neural foramen appear patent. Impression: There is no evidence of acute injury of the osseous cervical spine. Electronically Signed by Jero Simons DO 03/27/2019 02:30 P
--- NOTE | 2019-03-27 14:42 | REP ---
Four views right elbow: 03/28/2019. Indication: Elbow trauma. Comparison: None. Findings: There is no fracture. Bony alignment is anatomic. Small posterior ulnar spur is noted. There is no joint effusion or additional significant soft tissue findings. Impression: No fracture. Electronically Signed by Jero Simons DO 03/27/2019 02:33 P
[2019-03-27] MEDS ORDERED: KETOROLAC 60 MG/2 ML VIAL (J1885) IM ONE (15:00)
[2019-03-27] MEDS ORDERED: KETO10TAB PO (15:23)
[2019-03-27 15:33] VITALS: BP 142/88
== END 2019-03-27 15:37 | disposition home or self-care (01) ==
LOC: M ED 13:14
DX: S53.401A Unspecified sprain of right elbow, initial encounter (principal); X50.0XXA Overexertion from strenuous movement or load, initial encounter; Y92.89 Other specified places as the place of occurrence of the external cause; Y93.89 Activity, other specified; Y99.0 Civilian activity done for income or pay; I10 Essential (primary) hypertension; E78.5 Hyperlipidemia, unspecified; F17.200 Nicotine dependence, unspecified, uncomplicated; Z79.899 Other long term (current) drug therapy
CPT/HCPCS: 72052; 73080; 96372; 99283; J1885

== ENCOUNTER 2019-04-09 13:46 | Emergency (ER) | payer OTHER, BC ==
[~2019-04-09] VITALS: Ht 182.9 cm; Wt 133.0 kg
[~2019-04-09 13:46] MED LIST changes: +GABA-1171 PO; +GABA-843 PO; +KETO10TAB PO; +ROPI1TAB PO
[2019-04-09 15:35] VITALS: BP 138/78
--- NOTE | 2019-04-09 15:47 | REP ---
Four views mandible: 04/09/2019. Indication: Mandibular pain or. Postoperative follow-up. Comparison: None. Findings: There is no acute mandibular fracture. The patient is status post surgical fixation of a left mandibular fracture with the surgical hardware intact. Surgical diane are additionally noted. The TMJs are unremarkable without subluxation/dislocation. No acute soft tissue abnormalities are present. There is no evidence of erosive osseous lesion. Impression: Postoperative mandibular changes without acute findings. Electronically Signed by Jero Simons DO 04/09/2019 03:39 P
== END 2019-04-09 15:38 | disposition home or self-care (01) ==
LOC: M ED 13:46
DX: S09.93XA Unspecified injury of face, initial encounter (principal); W22.8XXA Striking against or struck by other objects, initial encounter; Y92.89 Other specified places as the place of occurrence of the external cause; Z98.890 Other specified postprocedural states; Z79.899 Other long term (current) drug therapy

== ENCOUNTER → 2019-05-13 | Outpatient (CLI) | payer BC ==
[2019-05-13 18:05] LABS: BASO % 0.3 % (0.0-1.0); EOS # 0.2 10^3/uL (0.0-0.5); EOS % 3.7 % (0.0-3.0); HEMATOCRIT 41.3 % (42.0-52.0); HEMOGLOBIN 13.3 g/dl (13.5-17.5); LYMPH # 1.8 10^3/uL (1.5-5.0); LYMPH % 28.4 % (24.0-44.0); MEAN CORPUSCULAR HEMOGLOBIN 30.2 pg (27.0-33.0); MEAN CORPUSCULAR HGB CONC 32.2 g/dl (32.0-36.5); MEAN CORPUSCULAR VOLUME 93.9 fl (80.0-96.0); MONO # 0.5 10^3/uL (0.0-0.8); NEUTROPHILS # 3.7 10^3/uL (1.5-8.5); PLATELET COUNT, AUTOMATED 169 10^3/uL (150-450); WHITE BLOOD COUNT 6.3 10^3/uL (4.0-10.0)
[2019-05-13 18:19] LABS: BLOOD UREA NITROGEN 26 MG/DL (7-18); CALCIUM LEVEL 9.9 MG/DL (8.5-10.1); CARBON DIOXIDE LEVEL 30 MEQ/L (21-32); CHLORIDE LEVEL 106 MEQ/L (98-107); CREATININE FOR GFR 1.15 MG/DL (0.70-1.30); GLOMERULAR FILTRATION RATE > 60.0 (>56); GLUCOSE, FASTING 90 MG/DL (70-100); POTASSIUM SERUM 4.6 MEQ/L (3.5-5.1); SODIUM LEVEL 142 MEQ/L (136-145)
== END ==
LOC: M LAB 16:39
PROVIDERS: ATTEND Physician Assistant
DX: R07.9 Chest pain, unspecified (principal)

== ENCOUNTER → 2019-05-22 | Outpatient (CLI) | payer BC ==
--- NOTE | 2019-05-26 02:50 | ECWPNPC ---
PATIENT NAME: DARA VELARDE : 1965 GENDER: MALE VISIT DATE: 05/22/2019 DISCHARGE DATE: 05/22/19 1014 VISIT LOCKED DATE TIME: PHYSICIAN: SAMANTHA PRYOR RESOURCE: SAMANTHA PRYOR REASON FOR APPOINTMENT 1. JOINT PAIN. HISTORY OF PRESENT ILLNESS HISTORY OF PRESENT ILLNESS: PAIN THE PATIENT DESCRIBES THE PAIN... 53-YEAR-OLD MALE IN FOR CHRONIC PAIN FOLLOW-UP. HE RATES HIS PAIN CURRENTLY AT A 6 OUT OF 10 AND DESCRIBES IT ACHING, SHARP, AND STABBING. HE FEELS MEDICATIONS ARE WORKING WELL AND DENIES MED SIDE EFFECTS AT THIS TIME. FALL RISK SCREENING: SCREENING :NO FALLS REPORTED IN THE LAST YEAR CURRENT MEDICATIONS TAKING ALLOPURINOL 300 MG TABLET 1 TABLET ORALLY ONCE A DAY TAKING CYANOCOBALAMIN 1000 MCG TABLET 1 TABLET ORALLY ONCE A DAY TAKING FISH OIL 1000 MG CAPSULE 1 CAPSULE ORALLY 2 TIMES A DAY TAKING OMEPRAZOLE 20 MG CAPSULE DELAYED RELEASE 1 CAP(S) ORALLY ONCE A DAY TAKING PRAVASTATIN SODIUM 20 MG TABLET 1 TABLET ORALLY ONCE A DAY TAKING ROPINIROLE HCL 1 MG TABLET ORALLY 3 TIMES A DAY TAKING TERAZOSIN HCL 5 MG TABLET 1 ORALLY ONCE A DAY TAKING VITAMIN D-3 1000 UNIT CAPSULE 1 CAPSULE ORALLY ONCE A DAY TAKING ACETAMINOPHEN 500 MG CAPSULE 1-2 TABLET NEEDED ORALLY Q 6 HRS PRN PAIN FPX=6067 MG/24 HOURS TAKING MULTIVITAMIN ADULT - TABLET 1 TAB ORALLY DAILY TAKING TRAZODONE HCL 50 MG TABLET 1 TABLET AT BEDTIME NEEDED ORALLY ONCE A DAY TAKING GABAPENTIN 300 MG CAPSULE 1 CAPSULE ORALLY ONCE A DAY TAKING GABAPENTIN 100 MG CAPSULE 1 CAPSULE ORALLY 1 IN AM,1 IN AFTRNOON TAKING NABUMETONE 500 MG TABLET 1 TABLET ORALLY BID WITH FOOD TAKING PERCOCET 10-325 MG TABLET 1 TABLET NEEDED ORALLY EVERY 4 - 6 HRS MDD =4 NOT-TAKING PREDNISONE 10 MG TABLET 1 TABLET ORALLY 5 TABSX 5 DAYS, 4 TABS X 5 DAYS, 3 TABSX 5DAYS, 2 TABS X5 DAYS, 1 TABX5 DAYS NOT-TAKING PREDNISONE 10 MG TABLET 1 TABLET ORALLY TAKE 5 TAB DAILY X 5 DAY, 4 TAB DAILY 5 DAY, 3 TAB X 5 DAY 2 TAB X 5 DAY 1 TAB X 5 DAY MEDICATION LIST REVIEWED AND RECONCILED WITH THE PATIENT PAST MEDICAL HISTORY GERD GOUT HIGH CHOLESTEROL HYPERTENSION NECK AND BACK PAIN CARPAL TUNNEL SYNDROME NUMBNESS ARMS AND LEGS ALLERGIES N.K.D.A. SURGICAL HISTORY ORAL SURGERY TIMES 2 PERFORATED COLON HERNIA REPAIR FRACTURED FEMUR RODS PLATE AND SCREWS IN RT ANKLE BILATERAL CARPAL TUNNEL REPAIR PLATE IN JAW FAMILY HISTORY FATHER: MOTHER: ALIVE 1DAUGHTER(S) . PT WILL BRING IN FAMILY HISTORY. SOCIAL HISTORY GENERAL: TOBACCO USE ARE YOU A:NONSMOKER PAIN CLINIC PFS, CLERGY, PUBLIC HEALTH REFERRALS PFS REFERRAL NEEDED?NO CLERGY REFERRAL NEEDED?NO PUBLIC HEALTH REFERRAL NEEDED?NO WAS THE PROVIDER NOTIFIED OF ANY PERTINENT INFO? N/A HAS THE PATIENT BEEN EDUCATED REGARDING HIS/HER PLAN OF CARE?YES HAS THE PATIENT BEEN EDUCATED REGARDING PAIN, THE RISK FOR PAIN, THE IMPORTANCE OF EFFECTIVE PAIN MANAGEMENT, AND THE PAIN ASSESSMENT PROCESS?YES LATEX QUESTIONNAIRE LATEX ALLERGY : HAVE YOU EVER DEVELOPED ANY TYPE OF REACTION AFTER HANDLING LATEX PRODUCTS SUCH RUBBER GLOVES, CONDOMS, DIAPHRAGMS, BALLOONS, SOCKS, OR UNDERWEAR?NO LATEX ALLERGY : HAVE YOU EVER DEVELOPED ANY TYPE OF REACTION DURING OR AFTER DENTAL APPOINTMENT, VAGINAL/RECTAL EXAMINATION, SURGICAL PROCEDURE, OR ANY OTHER EXPOSURE?NO DATE ASKED : 12/22/2018 LATEX RISK : HAVE YOU EVER HAD ANY DIFFICULTY BREATHING OR HIVES AFTER EATING OR HANDLING ANY FRUITS, OR VEGETABLES; SUCH KIWI, BANANAS, STONE FRUITS, OR CHESTNUTSNO LATEX RISK : DO YOU HAVE A PREVIOUS PERSONAL HISTORY OF MORE THAN NINE SURGERIES, SPINA BIFIDA, OR REPEATED CATHERIZATIONS? NO LATEX RISK : ARE YOU FREQUENTLY EXPOSED TO LATEX PRODUCTS IN YOUR OCCUPATION?NO CAFFEINE CAFFEINE USE?YES HOW OFTEN AND HOW MUCH? 2 CUPS COFFEE/DAY ADVANCE DIRECTIVE ADVANCE DIRECTIVE DISCUSSED WITH PATIENT:YES HCP IS CANELO VELARDE, PHONE NUMBER [phone] EDUCATION LEVEL OF EDUCATION: GED ORIENTAL ORTHODOX [id number] NONE LANGUAGE LANGUAGES SPOKEN:CAMEROONIAN DOMESTIC VIOLENCE DO YOU FEEL SAFE IN YOUR ENVIRONMENT?YES ALCOHOL SCREENING DID YOU HAVE A DRINK CONTAINING ALCOHOL IN THE PAST YEAR?YES HOW OFTEN DID YOU HAVE SIX OR MORE DRINKS ON ONE OCCASION IN THE PAST YEAR?NEVER (0 POINTS) HOW MANY DRINKS DID YOU HAVE ON A TYPICAL DAY WHEN YOU WERE DRINKING IN THE PAST YEAR?3 OR 4 (1 POINT) HOW OFTEN DID YOU HAVE A DRINK CONTAINING ALCOHOL IN THE PAST YEAR?MONTHLY OR LESS (1 POINT) POINTS2 INTERPRETATIONNEGATIVE RECREATIONAL DRUG USE DRUG USE?NO LEARNING BARRIERS / SPECIAL NEEDS BARRIERS TO LEARNING?NO HEARING IMPAIRED?NO VISION IMPAIRED?NO COGNITIVELY IMPAIRED?NO READINESS TO LEARN?YES LEARNING PREFERENCES?NO LEARNING CAPABILITIES PRESENT?YES EMOTIONAL BARRIERS?NO SPECIAL DEVICES?NO LEAD APPLICATION ARCHITECT NEEDED?NO 07/01/18 REVIEWED WITH PT. [id number] REVIEWED WITH PT LASREVIEWED WITH PT 12/22/18 0906 BV. HOSPITALIZATION/MAJOR DIAGNOSTIC PROCEDURE SURGERIES REVIEW OF SYSTEMS REVIEWED BY: PROVIDER: KAMERON VITAL-Jonathan . CONSTITUTIONAL: ANY CHANGE IN YOUR MEDICAL CONDITION? YES, HEART CATH IS SCHEDULED FOR CHEST PAIN . CHILLS NO . FEVER NO . INFECTION: DO YOU HAVE NEW INFECTIONS? NO . DO YOU HAVE HISTORY OF MRSA? NO . MUSCULOSKELETAL: ANY NEW PATTERNS OF PAIN OR NUMBNESS? NO . GASTROENTEROLOGY: ANY NEW CHANGE IN BOWEL CONTROL? NO . GENITOURINARY: ANY NEW CHANGE IN BLADDER CONTROL? NO . IS THERE A CHANCE YOU COULD BE ? NO . HEMATOLOGY/LYMPH: DO YOU TAKE ANY BLOOD THINNERS? (FOR EXAMPLE- COUMADIN, PLAVIX, AGGRENOX, PLATEL, PRADAXA, OR XARELTO) NO . WHEN WAS YOUR LAST DOSE? DATE: TIME: . NEUROLOGY: HAVE YOU FALLEN IN THE PAST 12 MONTHS? NO . ANY NEW EXTREMITY NUMBNESS OR WEAKNESS? YES, BILAT LEGS AND ARM NEUROPATHY NOT NEW BUT IS GETTING WORSE . CARDIOLOGY: DO YOU HAVE A PACEMAKER OR DEFIBRILLATOR? NO . RESPIRATORY: HAVE YOU BEEN SICK IN THE PAST WEEK? NO . FEVER NO . FLU LIKE SYMPTOMS? NO . COUGH NO . INTEGUMENTARY: DO YOU HAVE ANY RASHES OR OPEN SORES? NO . ALLERGIC/IMMUNO: ARE YOU ALLERGIC TO IV DYE? NO . ANY NEW ALLERGIES? NO . PSYCHIATRIC: DO YOU HAVE THOUGHTS OF HURTING YOURSELF OR SOMEONE ELSE? NO . ARE YOU ABUSED, NEGLECTED, OR IN AN UNSAFE ENVIRONMENT? NO . ENDOCRINOLOGY: ARE YOU DIABETIC? NO . OTHER: DO YOU NEED ANY PRESCRIPTIONS? TO DISCUSS . IF YES, PLEASE LIST: ____ . ANY NEW PROBLEMS WITH YOUR MEDICATIONS? NO . WHEN DID YOU LAST EAT? ____ . WHEN DID YOU LAST DRINK? ____ . WHAT DID YOU LAST DRINK? ____ . NAME OF PERSON DRIVING YOU HOME? ____ . DO YOU HAVE ANY OTHER QUESTIONS OR CONCERNS NO . VITAL SIGNS WT 314 LBS, HT 72 IN, BMI 42.58 INDEX, BP 173/84 MM HG, HR 85 /MIN, RR 18 /MIN, TEMP 98.0 F, OXYGEN SAT % 98%, NA INITIALS AW 0923, REVIEWED BY: EM. EXAMINATION GENERAL EXAMINATION: GENERALNO ACUTE DISTRESS, WELL NOURISHED AND HYDRATED. PSYCHAPPROPRIATE MOOD AND AFFECT . LUNGS:CLEAR TO AUSCULTATION BILATERALLY, NO WHEEZES, RHONCHI, RALES. HEART:NO MURMURS, REGULAR RATE AND RHYTHM. ASSESSMENTS CHRONIC PRESCRIPTION OPIATE USE - Z79.899 (PRIMARY) LUMBAR DISC DISPLACEMENT WITHOUT MYELOPATHY - M51.26 TREATMENT CHRONIC PRESCRIPTION OPIATE USE CLINICAL NOTES: 53-YEAR-OLD MALE IN FOR CHRONIC PAIN FOLLOW-UP. GIVEN PRESENTING SYMPTOMS AND RESULTS OF PHYSICAL EXAMINATION RECOMMENDED CONTINUATION OF CURRENT MEDICATION REGIMEN WITH FOLLOW-UP IN 3 MONTHS. U TOX TO BE COLLECTED TODAY PATIENT HAS EXPRESSED UNDERSTANDING OF AND WAS IN AGREEMENT WITH TREATMENT PLAN. GIVEN TIME TO ASK QUESTIONS AND EXPRESS CONCERNS., ISTOP REGISTRY REVIEWED AND DEMONSTRATES COMPLLIANCE. (REF # [id number] ) BRINGS IN MEDICATIONS WHICH IS APPROPRIATE FOR WHAT WAS DISPENSED. RECENT URINE TOXICOLOGY REVIEWED. NO UNAUTHORIZED MEDICATIONS. NO ILLICIT SUBSTANCES AND PRESCRIBED MEDICATIONS WERE PRESENT. PROCEDURE CODES FA211 ESTABILISHED PATIENT [facility] CHARGE DISPOSITION & COMMUNICATION FOLLOW UP 3 MONTHS (REASON: BACK PAIN) ELECTRONICALLY SIGNED BY ZAHRAA CAMARENA ON 05/25/2019 AT 08:42 AM EST DISCLAIMER : THIS IS A VISIT SUMMARY EXTRACTED FROM THE [employer] CHART. IT IS NOT A COPY OF THE [employer] PROGRESS NOTE. CAROD
== END ==
LOC: M PAIN 09:15
PROVIDERS: ATTEND Family Medicine
DX: M51.26 Other intervertebral disc displacement, lumbar region (principal); G89.29 Other chronic pain; K21.9 Gastro-esophageal reflux disease without esophagitis; I10 Essential (primary) hypertension; E66.01 Morbid (severe) obesity due to excess calories; Z68.41 Body mass index [BMI] 40.0-44.9, adult; Z79.899 Other long term (current) drug therapy

== ENCOUNTER 2019-07-16 08:02 | Day surgery (SDC) | payer BC, SELFPAY ==
[~2019-07-16] VITALS: Ht 182.9 cm; Wt 136.1 kg
[~2019-07-16 08:02] MED LIST changes: +ACET1LIQ PO; +CLAR10CA3 PO; +DICY20TA11 PO; +KP F1200 PO; +LISI10TA4 PO; +MULTCAP PO; +NABU-126 PO; +NS 1,000 ML IV ONE; +OMEP-218 PO; +PRAV20TA2 PO; -ROPI1TAB PO; +ROPI1TAB3 PO; +TRAZ-252 PO; +VITA-113 PO; +VITA100054 PO
[2019-07-16] MEDS ORDERED: propofoL 200 MG/20 ML VIAL As Ordered ONE ×2 (08:35→09:41)
[2019-07-16] MEDS ORDERED: LIDOCAINE 2% INJ 100 MG/5 ML SDV (FOR ANES.) As Ordered ONE (08:35)
--- NOTE | 2019-07-16 09:47 | ROOR ---
Patient Name: Michael Davison Procedure Date: 07/16/2019 9:24 AM Date of : 1965 Age: 54 Room: [facility] Gender: Male Note Status: Finalized Procedure: Colonoscopy Indications: Screening in patient at increased risk: Family history of 1st-degree relative with colorectal cancer Providers: David Garner Jr, MD Referring MD: DELIA HERNANDEZ Requesting Provider: Medicines: Propofol per Anesthesia Complications: No immediate complications. Procedure: Pre-Anesthesia Assessment: - Prior to the procedure, a History and Physical was performed, and patient medications and allergies were reviewed. The patient is competent. The risks and benefits of the procedure and the sedation options and risks were discussed with the patient. All questions were answered and informed consent was obtained. Patient identification and proposed procedure were verified by the physician and the nurse in the pre-procedure area and in the procedure room. Mental Status Examination: alert and oriented. Airway Examination: normal oropharyngeal airway and neck mobility. Respiratory Examination: clear to auscultation. CV Examination: normal. ASA Grade Assessment: II - A patient with mild systemic disease. After reviewing the risks and benefits, the patient was deemed in satisfactory condition to undergo the procedure. The anesthesia plan was to use moderate sedation / analgesia (conscious sedation). Immediately prior to administration of medications, the patient was re-assessed for adequacy to receive sedatives. The heart rate, respiratory rate, oxygen saturations, blood pressure, adequacy of pulmonary ventilation, and response to care were monitored throughout the procedure. The physical status of the patient was re-assessed after the procedure. The Colonoscope was introduced through the anus and advanced to the cecum, identified by appendiceal orifice and ileocecal valve. The colonoscopy was performed without difficulty. The patient tolerated the procedure well. The quality of the bowel preparation was adequate. Findings: Non-bleeding external and internal hemorrhoids were found during endoscopy. The hemorrhoids were Grade II (internal hemorrhoids that prolapse but reduce spontaneously) and Grade III (internal hemorrhoids that prolapse but require manual reduction). A diminutive polyp was found in the descending colon. The polyp was removed with a cold snare. Resection and retrieval were complete. The rectum, recto-sigmoid colon, descending colon, transverse colon, ascending colon, cecum, appendiceal orifice and anastomosis appeared normal. Impression: - Non-bleeding external and internal hemorrhoids. - One diminutive polyp in the descending colon, removed with a cold snare. Resected and retrieved. - The rectum, recto-sigmoid colon, descending colon, transverse colon, ascending colon, cecum, appendiceal orifice and colonic anastomosis are normal. Recommendation: - Discharge patient to home (ambulatory). - Repeat colonoscopy in 5 years for surveillance. David Garner MD David Garner Jr, MD 07/16/2019 9:47:07 AM Electronically signed by David Garner Jr, MD Number of Addenda: 0 Note Initiated On: 07/16/2019 9:24 AM Estimated Blood Loss: Estimated blood loss: none.
[2019-07-16 10:10] VITALS: BP 126/73
== END 2019-07-16 10:17 | disposition home or self-care (01) ==
LOC: M OPP 08:02
PROVIDERS: ATTEND Surgery
DX: K62.5 Hemorrhage of anus and rectum (principal); Z80.0 Family history of malignant neoplasm of digestive organs; D12.4 Benign neoplasm of descending colon; K64.2 Third degree hemorrhoids; K57.92 Diverticulitis of intestine, part unspecified, without perforation or abscess without bleeding; I10 Essential (primary) hypertension; E78.00 Pure hypercholesterolemia, unspecified; Z98.61 Coronary angioplasty status; K21.9 Gastro-esophageal reflux disease without esophagitis; R01.1 Cardiac murmur, unspecified; G25.81 Restless legs syndrome; M06.9 Rheumatoid arthritis, unspecified; G62.9 Polyneuropathy, unspecified; N40.0 Benign prostatic hyperplasia without lower urinary tract symptoms; M10.9 Gout, unspecified; Z90.49 Acquired absence of other specified parts of digestive tract; Z79.899 Other long term (current) drug therapy

== ENCOUNTER → 2019-08-06 | Outpatient (REF) | payer BC ==
[~2019-08-06] MED LIST changes: -NS 1,000 ML IV ONE
[2019-08-06 13:55] LABS: CPK CREATINE PHOSPHOKINASE 142 U/L (39-308); FERRITIN 158 NG/ML (26-388); FREE T4 1.26 NG/DL (0.76-1.46); IRON (FE) 75 UG/DL (65-175); PERCENT SATURATION 19.7 % (19.7-50.0); RHEUMATOID FACTOR QUANT < 10.0 IU/ML (<15.0); THYROID STIMULATING HORMONE 0.716 uIU/ML (0.358-3.740); TOTAL IRON BINDING CAPACITY 381 UG/DL (250-450); VITAMIN B12 LEVEL 946 PG/ML
[2019-08-06 13:56] LABS: FOLATE 23.7 NG/ML
[2019-08-06 14:05] LABS: HEMOGLOBIN A1c 5.3 %
== END ==
LOC: M LABNEURO 13:10
PROVIDERS: ATTEND Psychiatry & Neurology Neurology
DX: G62.9 Polyneuropathy, unspecified (principal); D50.9 Iron deficiency anemia, unspecified; E07.89 Other specified disorders of thyroid; E11.9 Type 2 diabetes mellitus without complications

== ENCOUNTER → 2019-08-21 | Outpatient (CLI) | payer BC ==
[~2019-08-21] MED LIST changes: +ACET160L16 PO; -ACET1LIQ PO
--- NOTE | 2019-08-25 05:17 | ECWPNPC ---
PATIENT NAME: DARA VELARDE : 1965 GENDER: MALE VISIT DATE: 08/21/2019 DISCHARGE DATE: 08/21/19 0936 VISIT LOCKED DATE TIME: PHYSICIAN: SAMANTHA PRYOR RESOURCE: SAMANTHA PRYOR REASON FOR APPOINTMENT 1. BACK PAIN HISTORY OF PRESENT ILLNESS HISTORY OF PRESENT ILLNESS: PAIN THE PATIENT DESCRIBES THE PAIN... 54-YEAR-OLD MALE IN FOR CHRONIC PAIN FOLLOW-UP. HE RATES HIS PAIN CURRENTLY AT AN 8 OUT OF 10 AND DESCRIBES IT ACHING, BURNING, SORE, STABBING, AND SHOOTING. HE FEELS MEDICATIONS ARE HELPFUL AND DENIES MED SIDE EFFECTS AT THIS TIME. HE DOES ADMIT TO BEING WORKED UP CURRENTLY FOR AN ENLARGED AORTA WELL SOME NEUROLOGICAL SYMPTOMS. FALL RISK SCREENING: SCREENING :NO FALLS REPORTED IN THE LAST YEAR CURRENT MEDICATIONS TAKING ALLOPURINOL 300 MG TABLET 1 TABLET ORALLY ONCE A DAY TAKING CYANOCOBALAMIN 1000 MCG TABLET 1 TABLET ORALLY ONCE A DAY TAKING FISH OIL 1200 MG CAPSULE 1 CAPSULE ORALLY 2 TIMES A DAY TAKING OMEPRAZOLE 20 MG CAPSULE DELAYED RELEASE 1 CAP(S) ORALLY ONCE A DAY TAKING PRAVASTATIN SODIUM 40 MG TABLET 1 TABLET ORALLY ONCE A DAY TAKING ROPINIROLE HCL 1 MG TABLET ORALLY 3 TIMES A DAY TAKING TERAZOSIN HCL 5 MG TABLET 1 ORALLY ONCE A DAY TAKING VITAMIN D-3 1000 UNIT CAPSULE 1 CAPSULE ORALLY ONCE A DAY TAKING ACETAMINOPHEN 500 MG CAPSULE 1-2 TABLET NEEDED ORALLY Q 6 HRS PRN PAIN KNR=7076 MG/24 HOURS TAKING MULTIVITAMIN ADULT - TABLET 1 TAB ORALLY DAILY TAKING TRAZODONE HCL 50 MG TABLET 1 TABLET AT BEDTIME NEEDED ORALLY ONCE A DAY TAKING GABAPENTIN 400 MG CAPSULE 1 CAPSULE ORALLY ONCE A DAY TAKING NABUMETONE 500 MG TABLET 1 TABLET ORALLY BID WITH FOOD TAKING PERCOCET 10-325 MG TABLET 1 TABLET NEEDED ORALLY EVERY 4 - 6 HRS MDD =4 TAKING CLARITIN 10 MG TABLET 1 TABLET ORALLY ONCE A DAY TAKING VITAMIN B12 1000 MCG TABLET EXTENDED RELEASE 1 TABLET ORALLY ONCE A DAY TAKING DICYCLOMINE HCL 20 MG TABLET 1 TABLET ORALLY THREE TIMES A DAY TAKING LISINOPRIL 10 MG TABLET 1 TABLET ORALLY ONCE A DAY NOT-TAKING GABAPENTIN 100 MG CAPSULE 1 CAPSULE ORALLY 1 IN AM,1 IN AFTRNOON NOT-TAKING PREDNISONE 10 MG TABLET 1 TABLET ORALLY 5 TABSX 5 DAYS, 4 TABS X 5 DAYS, 3 TABSX 5DAYS, 2 TABS X5 DAYS, 1 TABX5 DAYS NOT-TAKING PREDNISONE 10 MG TABLET 1 TABLET ORALLY TAKE 5 TAB DAILY X 5 DAY, 4 TAB DAILY 5 DAY, 3 TAB X 5 DAY 2 TAB X 5 DAY 1 TAB X 5 DAY MEDICATION LIST REVIEWED AND RECONCILED WITH THE PATIENT PAST MEDICAL HISTORY GERD GOUT HIGH CHOLESTEROL HYPERTENSION NECK AND BACK PAIN CARPAL TUNNEL SYNDROME NUMBNESS ARMS AND LEGS ALLERGIES N.K.D.A. SURGICAL HISTORY ORAL SURGERY TIMES 2 PERFORATED COLON HERNIA REPAIR FRACTURED FEMUR RODS PLATE AND SCREWS IN RT ANKLE BILATERAL CARPAL TUNNEL REPAIR PLATE IN [facility] HEART CATHETERIZATION 06/2019 COLONOSCOPY 07/2019 FAMILY HISTORY FATHER: MOTHER: ALIVE 1DAUGHTER(S) . PT WILL BRING IN FAMILY HISTORY. SOCIAL HISTORY GENERAL: TOBACCO USE ARE YOU A:NONSMOKER PAIN CLINIC PFS, CLERGY, PUBLIC HEALTH REFERRALS PFS REFERRAL NEEDED?NO CLERGY REFERRAL NEEDED?NO PUBLIC HEALTH REFERRAL NEEDED?NO WAS THE PROVIDER NOTIFIED OF ANY PERTINENT INFO? N/A HAS THE PATIENT BEEN EDUCATED REGARDING HIS/HER PLAN OF CARE?YES HAS THE PATIENT BEEN EDUCATED REGARDING PAIN, THE RISK FOR PAIN, THE IMPORTANCE OF EFFECTIVE PAIN MANAGEMENT, AND THE PAIN ASSESSMENT PROCESS?YES LATEX QUESTIONNAIRE LATEX ALLERGY : HAVE YOU EVER DEVELOPED ANY TYPE OF REACTION AFTER HANDLING LATEX PRODUCTS SUCH RUBBER GLOVES, CONDOMS, DIAPHRAGMS, BALLOONS, SOCKS, OR UNDERWEAR?NO LATEX ALLERGY : HAVE YOU EVER DEVELOPED ANY TYPE OF REACTION DURING OR AFTER DENTAL APPOINTMENT, VAGINAL/RECTAL EXAMINATION, SURGICAL PROCEDURE, OR ANY OTHER EXPOSURE?NO DATE ASKED : 12/22/2018 LATEX RISK : HAVE YOU EVER HAD ANY DIFFICULTY BREATHING OR HIVES AFTER EATING OR HANDLING ANY FRUITS, OR VEGETABLES; SUCH KIWI, BANANAS, STONE FRUITS, OR CHESTNUTSNO LATEX RISK : DO YOU HAVE A PREVIOUS PERSONAL HISTORY OF MORE THAN NINE SURGERIES, SPINA BIFIDA, OR REPEATED CATHERIZATIONS? NO LATEX RISK : ARE YOU FREQUENTLY EXPOSED TO LATEX PRODUCTS IN YOUR OCCUPATION?NO CAFFEINE CAFFEINE USE?YES HOW OFTEN AND HOW MUCH? 2 CUPS COFFEE/DAY ADVANCE DIRECTIVE ADVANCE DIRECTIVE DISCUSSED WITH PATIENT:YES HCP IS CANELO VELARDE, PHONE NUMBER [phone] EDUCATION LEVEL OF EDUCATION: GED YARSANISM [id number] NONE LANGUAGE LANGUAGES SPOKEN:ARABIC DOMESTIC VIOLENCE DO YOU FEEL SAFE IN YOUR ENVIRONMENT?YES ALCOHOL SCREENING DID YOU HAVE A DRINK CONTAINING ALCOHOL IN THE PAST YEAR?YES HOW OFTEN DID YOU HAVE SIX OR MORE DRINKS ON ONE OCCASION IN THE PAST YEAR?NEVER (0 POINTS) HOW MANY DRINKS DID YOU HAVE ON A TYPICAL DAY WHEN YOU WERE DRINKING IN THE PAST YEAR?3 OR 4 (1 POINT) HOW OFTEN DID YOU HAVE A DRINK CONTAINING ALCOHOL IN THE PAST YEAR?MONTHLY OR LESS (1 POINT) POINTS2 INTERPRETATIONNEGATIVE RECREATIONAL DRUG USE DRUG USE?NO LEARNING BARRIERS / SPECIAL NEEDS BARRIERS TO LEARNING?NO HEARING IMPAIRED?NO VISION IMPAIRED?NO COGNITIVELY IMPAIRED?NO READINESS TO LEARN?YES LEARNING PREFERENCES?NO LEARNING CAPABILITIES PRESENT?YES EMOTIONAL BARRIERS?NO SPECIAL DEVICES?NO CURTAIN FRAMER NEEDED?NO 07/01/18 REVIEWED WITH PT. AD09/08/18 09 REVIEWED WITH PT LASREVIEWED WITH PT 12/22/18 0906 BV. HOSPITALIZATION/MAJOR DIAGNOSTIC PROCEDURE SURGERIES REVIEW OF SYSTEMS REVIEWED BY: PROVIDER: KAMERON WAGGONER . CONSTITUTIONAL: ANY CHANGE IN YOUR MEDICAL CONDITION? NO . CHILLS NO . FEVER NO . INFECTION: DO YOU HAVE NEW INFECTIONS? NO . DO YOU HAVE HISTORY OF MRSA? NO . MUSCULOSKELETAL: ANY NEW PATTERNS OF PAIN OR NUMBNESS? NO . GASTROENTEROLOGY: ANY NEW CHANGE IN BOWEL CONTROL? NO . GENITOURINARY: ANY NEW CHANGE IN BLADDER CONTROL? NO . IS THERE A CHANCE YOU COULD BE ? NO . HEMATOLOGY/LYMPH: DO YOU TAKE ANY BLOOD THINNERS? (FOR EXAMPLE- COUMADIN, PLAVIX, AGGRENOX, PLATEL, PRADAXA, OR XARELTO) NO . WHEN WAS YOUR LAST DOSE? DATE: TIME: . NEUROLOGY: HAVE YOU FALLEN IN THE PAST 12 MONTHS? YES, HAS FALLEN SEVERAL TIMES WHILE WORKING FROM WEAKNESS AND LOSS OF BALANCE AND WEAKNESS . ANY NEW EXTREMITY NUMBNESS OR WEAKNESS? YES, BILAT ARMS AND HANDS ARE NUMB, LEGS AND FEET ARE NUMB . CARDIOLOGY: DO YOU HAVE A PACEMAKER OR DEFIBRILLATOR? NO . RESPIRATORY: HAVE YOU BEEN SICK IN THE PAST WEEK? NO . FEVER NO . FLU LIKE SYMPTOMS? NO . COUGH NO . INTEGUMENTARY: DO YOU HAVE ANY RASHES OR OPEN SORES? NO . ALLERGIC/IMMUNO: ARE YOU ALLERGIC TO IV DYE? NO . ANY NEW ALLERGIES? NO . PSYCHIATRIC: DO YOU HAVE THOUGHTS OF HURTING YOURSELF OR SOMEONE ELSE? NO . ARE YOU ABUSED, NEGLECTED, OR IN AN UNSAFE ENVIRONMENT? NO . ENDOCRINOLOGY: ARE YOU DIABETIC? NO . OTHER: DO YOU NEED ANY PRESCRIPTIONS? NO . IF YES, PLEASE LIST: ____ . ANY NEW PROBLEMS WITH YOUR MEDICATIONS? NO, MED DOSAGE CHANGES . WHEN DID YOU LAST EAT? ____ . WHEN DID YOU LAST DRINK? ____ . WHAT DID YOU LAST DRINK? ____ . NAME OF PERSON DRIVING YOU HOME? ____ . DO YOU HAVE ANY OTHER QUESTIONS OR CONCERNS NO . VITAL SIGNS WT 319 LBS, HT 72 IN, BMI 43.26 INDEX, BP 144/74 MM HG, HR 89 /MIN, RR 16 /MIN, OXYGEN SAT % 97, SAFE IN ENV? (Y/N) Y, REVIEWED BY: EM. EXAMINATION GENERAL EXAMINATION: GENERALNO ACUTE DISTRESS, WELL NOURISHED AND HYDRATED. PSYCHAPPROPRIATE MOOD AND AFFECT . LUNGS:CLEAR TO AUSCULTATION BILATERALLY, NO WHEEZES, RHONCHI, RALES. HEART:NO MURMURS, REGULAR RATE AND RHYTHM. ASSESSMENTS LUMBAR DISC DISPLACEMENT WITHOUT MYELOPATHY - M51.26 (PRIMARY) TREATMENT LUMBAR DISC DISPLACEMENT WITHOUT MYELOPATHY CLINICAL NOTES: 54-YEAR-OLD MALE IN FOR CHRONIC PAIN FOLLOW-UP. GIVEN PRESENTING SYMPTOMS AND RESULTS OF PHYSICAL EXAMINATION RECOMMENDED CONTINUATION CURRENT MEDICATION REGIMEN WITH FOLLOW-UP IN 3 MONTHS. PATIENT HAS EXPRESSED UNDERSTANDING OF AND WAS IN AGREEMENT WITH TREATMENT PLAN. GIVEN TIME TO ASK QUESTIONS AND EXPRESS CONCERNS., ISTOP REGISTRY REVIEWED AND DEMONSTRATES COMPLLIANCE. (REF # [id number] ) BRINGS IN MEDICATIONS WHICH IS APPROPRIATE FOR WHAT WAS DISPENSED. RECENT URINE TOXICOLOGY REVIEWED. NO UNAUTHORIZED MEDICATIONS. NO ILLICIT SUBSTANCES AND PRESCRIBED MEDICATIONS WERE PRESENT. PROCEDURE CODES FA211 ESTABILISHED PATIENT [facility] CHARGE DISPOSITION & COMMUNICATION FOLLOW UP 3 MONTHS (REASON: BACK PAIN) ELECTRONICALLY SIGNED BY ZAHRAA CAMARENA ON 08/24/2019 AT 09:08 AM EDT DISCLAIMER : THIS IS A VISIT SUMMARY EXTRACTED FROM THE [employer] CHART. IT IS NOT A COPY OF THE [employer] PROGRESS NOTE. KEYLA
== END ==
LOC: M PAIN 08:45
PROVIDERS: ATTEND Family Medicine
DX: M51.26 Other intervertebral disc displacement, lumbar region (principal); G89.29 Other chronic pain; K21.9 Gastro-esophageal reflux disease without esophagitis; I10 Essential (primary) hypertension; E66.01 Morbid (severe) obesity due to excess calories; Z68.41 Body mass index [BMI] 40.0-44.9, adult; Z79.899 Other long term (current) drug therapy

== ENCOUNTER → 2019-09-24 | Outpatient (CLI) | payer BC ==
--- NOTE | 2019-09-25 05:59 | REP ---
Clinical: Intermittent asthma. Technique: Axial noncontrast images from the thoracic inlet to the upper abdomen with coronal and sagittal re-formations. Comparison: None. Findings: The bilateral lung avilez are relatively well aerated and clear. No significant atelectasis, consolidation or effusion. Incidental 2 mm noncalcified nodules clustered in the periphery of the right upper lobe (image [id number]) are nonspecific. No further significant nodule or mass lesion. Tracheobronchial tree is patent and without bronchiectasis. No adenopathy. The mediastinum demonstrates normal thoracic aorta, pulmonary vasculature and heart/pericardium. Surrounding musculoskeletal structures without acute osseous abnormality. Limited upper abdomen demonstrates normal bilateral adrenal glands. Incompletely evaluated, nonspecific isodense/hypodense lesions involving the visualized kidneys may warrant ultrasound evaluation. Impression: 1. Few small clustered noncalcified nodules in the right upper lobe measuring up to 2 mm are nonspecific. No prior examinations available for comparison. Consider 12-month follow-up. 2. No acute mediastinal or pleuroparenchymal process. 3. Incompletely evaluated irregularities to the visualized kidneys may warrant ultrasound follow-up. Electronically Signed by Ollie Junior MD 09/25/2019 05:50 A
== END ==
LOC: M RAD 10:48
PROVIDERS: ATTEND Internal Medicine Pulmonary Disease
DX: J45.20 Mild intermittent asthma, uncomplicated (principal); R91.8 Other nonspecific abnormal finding of lung field

== ENCOUNTER → 2019-10-20 | Outpatient (CLI) | payer BC ==
--- NOTE | 2019-10-21 03:29 | REP ---
Clinical: Abnormality suggested by recent chest CT. Technique: Ultrasound examination using curved array transducer. Findings: Examination is somewhat limited due to body habitus and technical factors. The right kidney is relatively normal in reniform shape and measures 13.0 x 6.2 x 6.4 cm without hydronephrosis, or nephrolithiasis. Two poorly defined hypoechoic lesions in the upper pole measures 3.5 x 2.4 x 3.3 cm and 4.2 x 2.6 x 3.6 cm which may represent complex cysts or mass. The left kidney is normal in reniform shape and measures 12.6 x 6.3 x 6.3 cm without hydronephrosis, cystic or mass lesion. A small 5 mm nonobstructing lower pole calculus cannot be excluded. Bladder is unremarkable. Findings: Two hypoechoic lesions in the upper pole right kidney may represent complex cysts or mass. Consider pre and postcontrast CT of the abdomen for further investigation. Electronically Signed by Ollie Junior MD 10/21/2019 03:20 A
== END ==
LOC: M RAD 14:55
PROVIDERS: ATTEND Internal Medicine Pulmonary Disease
DX: R93.421 Abnormal radiologic findings on diagnostic imaging of right kidney (principal); R93.422 Abnormal radiologic findings on diagnostic imaging of left kidney

== ENCOUNTER → 2019-11-03 | Outpatient (CLI) | payer BC ==
[2019-11-03 11:34] LABS: BLOOD UREA NITROGEN 19 MG/DL (7-18); CREATININE FOR GFR 0.95 MG/DL (0.70-1.30); GLOMERULAR FILTRATION RATE > 60.0 (>56)
== END ==
LOC: M LAB 09:28
PROVIDERS: ATTEND Internal Medicine Pulmonary Disease
DX: R93.421 Abnormal radiologic findings on diagnostic imaging of right kidney (principal)

== ENCOUNTER → 2019-11-10 | Outpatient (CLI) | payer BC ==
[~2019-11-10] MED LIST changes: +GASTROGRAFIN SOLUTION 30ML (Q9963) As Ordered ONE; +ISOVUE-370 76% 100ML VIAL As Ordered ONE
--- NOTE | 2019-11-11 02:46 | REP ---
Clinical: Right renal abnormality. Technique: Axial precontrast, arterial phase, venous phase, and delayed phase images of the abdomen using oral (per protocol) and 100 ml Isovue 370 intravenous contrast material. Comparison: 05/31/2011 Findings: The right kidney demonstrates a 3.8 cm round complex lesion at the upper pole which exhibits central fluid collection and enhancing surrounding eccentric mural soft tissue which is difficult to distinguish between abnormal soft tissue versus asymmetric surrounding renal parenchyma. While this lesion may represent a complex cyst, it is a relatively new lesion as compared with most recent available CT of the abdomen dated 2010. No associated acute perinephric stranding or adenopathy is appreciated. The remainder of the bilateral kidneys are normal. Liver, spleen, pancreas, and bilateral adrenal glands are normal. Subtle cholelithiasis suggested without evidence for acute cholecystitis. Visualized portions of the enteric system are normal. No ascites. No intraperitoneal or retroperitoneal adenopathy noted. No free air. Surrounding musculoskeletal structures are intact. Impression: 1. Complex 3.8 cm right upper pole partially cystic renal lesion may be classified as Bosniak III versus Bosniak IV type lesion by CT evaluation . Electronically Signed by Ollie Junior MD 11/11/2019 02:37 A
== END ==
LOC: M RAD 12:16
PROVIDERS: ATTEND Internal Medicine Pulmonary Disease
DX: R93.421 Abnormal radiologic findings on diagnostic imaging of right kidney (principal); N28.89 Other specified disorders of kidney and ureter
CPT/HCPCS: 74170; Q9963; Q9967

== ENCOUNTER → 2019-11-25 | Outpatient (CLI) | payer BC ==
[~2019-11-25] MED LIST changes: -GASTROGRAFIN SOLUTION 30ML (Q9963) As Ordered ONE; -ISOVUE-370 76% 100ML VIAL As Ordered ONE
--- NOTE | 2019-11-25 13:13 | REP ---
Bilateral lower extremity arterial Doppler ultrasound: History: Leg pain. Atherosclerosis. Findings: Ankle brachial indices are normal measured at 1.2 on the right and 1.1 on the left. Normal triphasic waveforms are noted on arterial Doppler tracings of the lower extremity arteries bilaterally. No stenosis or occlusion is seen on either side. Right lower extremity arterial Doppler velocity chart: CF A 78 cm/S Profunda 78 Proximal SFA 91 Mid SFA 62 Distal SFA 86 Popliteal 71 Proximal AT A 22 Tibioperoneal trunk 63 Proximal BORDER INSPECTOR 44 Distal BORDER INSPECTOR 87 Distal AT A 53 Left lower extremity arterial Doppler velocity chart: CF A 96 cm/S Profunda 48 Proximal SFA 82 Mid SFA 57 Distal SFA 70 Popliteal 67 Proximal AT A 46 Tibioperoneal trunk 55 Proximal BORDER INSPECTOR 28 Distal BORDER INSPECTOR 94 Distal AT A 57 Electronically Signed by Michael Charles MD 11/25/2019 01:04 P
== END ==
LOC: M RAD 09:23
PROVIDERS: ATTEND Physician Assistant
DX: I70.203 Unspecified atherosclerosis of native arteries of extremities, bilateral legs (principal)

== ENCOUNTER → 2019-11-27 | Outpatient (CLI) | payer BC ==
--- NOTE | 2019-11-30 23:28 | ECWPNPC ---
PATIENT NAME: DARA VELARDE : 1965 GENDER: MALE VISIT DATE: 11/27/2019 DISCHARGE DATE: 11/27/19 1158 VISIT LOCKED DATE TIME: PHYSICIAN: SAMANTHA PRYOR RESOURCE: SAMANTHA PRYOR REASON FOR APPOINTMENT 1. BACK PAIN HISTORY OF PRESENT ILLNESS GENERAL: - 54-YEAR-OLD MALE IN FOR CHRONIC PAIN FOLLOW-UP. HE RATES HIS PAIN CURRENTLY AT A 4 OUT OF 10 AND DESCRIBES IT A DULL PAIN. HE FEELS MEDICATIONS ARE WORKING WELL AND DENIES MED SIDE EFFECTS AT THIS TIME. PATIENT DOES ADMITS TO RECENT DIAGNOSIS OF KIDNEY CANCER FOR WHICH HE WILL BE HAVING A FULL AND/OR PARTIAL NEPHRECTOMY IN DECEMBER. FALL RISK SCREENING: SCREENING :NO FALLS REPORTED IN THE LAST YEAR PAIN SCREENING: PATIENT HAS A COMPLAINT OF ACUTE OR CHRONIC PAIN :YES LOCATION OF PAIN:LOW BACK INTENSITY OF PAIN (SCALE OF 1 TO 10):4 WHAT DOES YOUR PAIN FEEL LIKE:OTHER DULL PAIN DURATION:CONTINOUS, ALL DAY PAIN IS INCREASED BY:ACTIVITIES, PROLONGED STANDING PAIN IS DECREASED BY:USE OF PAIN MEDICATIONS, SITTING PAIN HAS INTERFERED WITH THE FOLLOWING:MOOD, HOUSEWORK, RELATIONSHIP WITH OTHERS, ENJOYMENT OF LIFE PLAN/GOALS/TREATMENT/INTERVENTION/FOLLOW UP:SEE PLAN NURSING NOTE: -. PAIN CENTER INTAKE QUESTIONS: DO YOU HAVE A HISTORY OF MRSA? :NO DO YOU TAKE A BLOOD THINNERS? :NO DO YOU HAVE ANY BLEEDING DISORDERS? :NO ANY NEW NUMBNESS OR WEAKNESS IN YOUR LEGS OR ARMS? :NO ANY PACEMAKER,DEFIBRILLATOR, OR DORSAL COLUMN STIMULATOR? :NO DO YOU HAVE ANY RASHES OR OPEN SORES? :NO ARE YOU ALLERGIC TO IV DYE? :NO ARE YOU DIABETIC? :NO ANY NEW PROBLEMS WITH YOUR MEDICATIONS? :NO HAVE YOU RECEIVED A VACCINE IN THE PAST 30 DAYS? :NO DO YOU PLAN TO RECEIVE A VACCINE IN THE NEXT 21 DAYS? :NO DO YOU NEED ANY PRESCRIPTION? :YES NABUMETONE, OXYCODONE DO YOU TAKE ANY IMMUNOSUPPRESSIVE MEDICATIONS? :NO IS THERE A CHANCE YOU COULD BE ? :NO ARE YOU BREAST FEEDING? :NO CURRENT MEDICATIONS TAKING ALLOPURINOL 300 MG TABLET 1 TABLET ORALLY ONCE A DAY TAKING CYANOCOBALAMIN 1000 MCG TABLET 1 TABLET ORALLY ONCE A DAY TAKING FISH OIL 1200 MG CAPSULE 1 CAPSULE ORALLY 2 TIMES A DAY TAKING OMEPRAZOLE 20 MG CAPSULE DELAYED RELEASE 1 CAP(S) ORALLY ONCE A DAY TAKING PRAVASTATIN SODIUM 40 MG TABLET 1 TABLET ORALLY ONCE A DAY TAKING ROPINIROLE HCL 1 MG TABLET ORALLY 3 TIMES A DAY TAKING TERAZOSIN HCL 5 MG TABLET 1 ORALLY ONCE A DAY TAKING VITAMIN D-3 1000 UNIT CAPSULE 1 CAPSULE ORALLY ONCE A DAY TAKING ACETAMINOPHEN 500 MG CAPSULE 1-2 TABLET NEEDED ORALLY Q 6 HRS PRN PAIN AJK=2840 MG/24 HOURS TAKING MULTIVITAMIN ADULT - TABLET 1 TAB ORALLY DAILY TAKING GABAPENTIN 400 MG CAPSULE 1 CAPSULE ORALLY ONCE A DAY TAKING CLARITIN 10 MG TABLET 1 TABLET ORALLY ONCE A DAY TAKING VITAMIN B12 1000 MCG TABLET EXTENDED RELEASE 1 TABLET ORALLY ONCE A DAY TAKING DICYCLOMINE HCL 20 MG TABLET 1 TABLET ORALLY THREE TIMES A DAY TAKING LISINOPRIL 10 MG TABLET 1 TABLET ORALLY ONCE A DAY TAKING NABUMETONE 500 MG TABLET 1 TABLET ORALLY BID WITH FOOD TAKING TRAZODONE HCL 50 MG TABLET 1 TABLET AT BEDTIME NEEDED ORALLY ONCE A DAY TAKING PERCOCET 10-325 MG TABLET 1 TABLET NEEDED ORALLY EVERY 4 - 6 HRS MDD =4 NOT-TAKING GABAPENTIN 100 MG CAPSULE 1 CAPSULE ORALLY 1 IN AM,1 IN AFTRNOON NOT-TAKING PREDNISONE 10 MG TABLET 1 TABLET ORALLY 5 TABSX 5 DAYS, 4 TABS X 5 DAYS, 3 TABSX 5DAYS, 2 TABS X5 DAYS, 1 TABX5 DAYS NOT-TAKING PREDNISONE 10 MG TABLET 1 TABLET ORALLY TAKE 5 TAB DAILY X 5 DAY, 4 TAB DAILY 5 DAY, 3 TAB X 5 DAY 2 TAB X 5 DAY 1 TAB X 5 DAY MEDICATION LIST REVIEWED AND RECONCILED WITH THE PATIENT PAST MEDICAL HISTORY GERD GOUT HIGH CHOLESTEROL HYPERTENSION NECK AND BACK PAIN CARPAL TUNNEL SYNDROME NUMBNESS ARMS AND LEGS ALLERGIES N.K.D.A. SURGICAL HISTORY ORAL SURGERY TIMES 2 PERFORATED COLON HERNIA REPAIR FRACTURED FEMUR RODS PLATE AND SCREWS IN RT ANKLE BILATERAL CARPAL TUNNEL REPAIR PLATE IN JAW HEART CATHETERIZATION 06/2019 COLONOSCOPY 07/2019 FAMILY HISTORY FATHER: MOTHER: ALIVE 1DAUGHTER(S) . PT WILL BRING IN FAMILY HISTORY, FATHER HAD KIDNEY CANCER. SOCIAL HISTORY GENERAL: TOBACCO USE ARE YOU A:NONSMOKER LATEX QUESTIONNAIRE LATEX ALLERGY : HAVE YOU EVER DEVELOPED ANY TYPE OF REACTION AFTER HANDLING LATEX PRODUCTS SUCH RUBBER GLOVES, CONDOMS, DIAPHRAGMS, BALLOONS, SOCKS, OR UNDERWEAR?NO LATEX ALLERGY : HAVE YOU EVER DEVELOPED ANY TYPE OF REACTION DURING OR AFTER DENTAL APPOINTMENT, VAGINAL/RECTAL EXAMINATION, SURGICAL PROCEDURE, OR ANY OTHER EXPOSURE?NO LATEX RISK : HAVE YOU EVER HAD ANY DIFFICULTY BREATHING OR HIVES AFTER EATING OR HANDLING ANY FRUITS, OR VEGETABLES; SUCH KIWI, BANANAS, STONE FRUITS, OR CHESTNUTSNO LATEX RISK : DO YOU HAVE A PREVIOUS PERSONAL HISTORY OF MORE THAN NINE SURGERIES, SPINA BIFIDA, OR REPEATED CATHERIZATIONS? NO LATEX RISK : ARE YOU FREQUENTLY EXPOSED TO LATEX PRODUCTS IN YOUR OCCUPATION?NO DATE ASKED : 11/27/2019 ALCOHOL SCREENING DID YOU HAVE A DRINK CONTAINING ALCOHOL IN THE PAST YEAR?YES HOW OFTEN DID YOU HAVE SIX OR MORE DRINKS ON ONE OCCASION IN THE PAST YEAR?NEVER (0 POINTS) HOW MANY DRINKS DID YOU HAVE ON A TYPICAL DAY WHEN YOU WERE DRINKING IN THE PAST YEAR?3 OR 4 (1 POINT) HOW OFTEN DID YOU HAVE A DRINK CONTAINING ALCOHOL IN THE PAST YEAR?MONTHLY OR LESS (1 POINT) POINTS2 INTERPRETATIONNEGATIVE RECREATIONAL DRUG USE DRUG USE?NO CAFFEINE CAFFEINE USE?YES HOW OFTEN AND HOW MUCH? 2 CUPS COFFEE/DAY JEWISH [id number] NONE LANGUAGE LANGUAGES SPOKEN:POLISH EDUCATION LEVEL OF EDUCATION: GED LEARNING BARRIERS / SPECIAL NEEDS BARRIERS TO LEARNING?NO HEARING IMPAIRED?NO VISION IMPAIRED?NO COGNITIVELY IMPAIRED?NO READINESS TO LEARN?YES LEARNING PREFERENCES?NO LEARNING CAPABILITIES PRESENT?YES EMOTIONAL BARRIERS?NO SPECIAL DEVICES?NO NURSERY RN NEEDED?NO DOMESTIC VIOLENCE DO YOU FEEL SAFE IN YOUR ENVIRONMENT?YES PAIN CLINIC PFS, CLERGY, PUBLIC HEALTH REFERRALS PFS REFERRAL NEEDED?NO CLERGY REFERRAL NEEDED?NO PUBLIC HEALTH REFERRAL NEEDED?NO WAS THE PROVIDER NOTIFIED OF ANY PERTINENT INFO? N/A HAS THE PATIENT BEEN EDUCATED REGARDING HIS/HER PLAN OF CARE?YES HAS THE PATIENT BEEN EDUCATED REGARDING PAIN, THE RISK FOR PAIN, THE IMPORTANCE OF EFFECTIVE PAIN MANAGEMENT, AND THE PAIN ASSESSMENT PROCESS?YES ADVANCE DIRECTIVE ADVANCE DIRECTIVE DISCUSSED WITH PATIENT:YES HCP IS CANELO VELARDE, PHONE NUMBER [phone] HOSPITALIZATION/MAJOR DIAGNOSTIC PROCEDURE SURGERIES REVIEW OF SYSTEMS CONSTITUTIONAL: ANY RECENT FEVER NO . CHILLS NO . WEIGHT CHANGE OF UNKNOWN REASONS NO . GASTROENTEROLOGY: NEW UNEXPLAINABLE CHANGES IN BOWEL CONTROL NO . CONSTIPATION NO . GENITOURINARY: ANY NEW CHANGE IN BLADDER CONTROL? NO . NEUROLOGY: NEW ONSET DIZZINESS OR NEUROLOGICAL CHANGES NOT MENTIONED NO . NEW NUMBNESS OR PAIN PATTERNS NOT MENTIONED AND PERTINENT TO TODAY'S VISIT NO . CARDIOLOGY: NEW CHEST PRESSURE NO . NEW CHEST PAIN NO . RESPIRATORY: UNEXPLAINABLE COUGH NO . NEW SHORTNESS OF BREATH NO . VITAL SIGNS WT 313.6 LBS, HT 72 IN, BMI 42.53 INDEX, BP 178/89 MM HG, HR 90 /MIN, RR 18 /MIN, TEMP 98.6 F, OXYGEN SAT % 97%, SAFE IN ENV? (Y/N) Y, NA INITIALS AW 1050NANA ASUMADU BREAKER MECHANIC. EXAMINATION GENERAL EXAMINATION: GENERALNO ACUTE DISTRESS, WELL NOURISHED AND HYDRATED. PSYCHAPPROPRIATE MOOD AND AFFECT . LUNGS:CLEAR TO AUSCULTATION BILATERALLY, NO WHEEZES, RHONCHI, RALES. HEART:NO MURMURS, REGULAR RATE AND RHYTHM. ASSESSMENTS LUMBAR DISC DISPLACEMENT WITHOUT MYELOPATHY - M51.26 (PRIMARY) CHRONIC PRESCRIPTION OPIATE USE - Z79.899 TREATMENT LUMBAR DISC DISPLACEMENT WITHOUT MYELOPATHY REFILL NABUMETONE TABLET, 500 MG, 1 TABLET, ORALLY, BID WITH FOOD, 30 DAYS, 60, REFILLS 1 REFILL PERCOCET TABLET, 10-325 MG, 1 TABLET NEEDED, ORALLY, EVERY 4 - 6 HRS MDD =4, 30 DAYS, 120, REFILLS 0 CLINICAL NOTES: 54-YEAR-OLD MALE IN FOR CHRONIC PAIN FOLLOW-UP. GIVEN PRESENTING SYMPTOMS RECOMMENDED CONTINUATION OF CURRENT MEDICATION REGIMEN WITH FOLLOW-UP IN 4 MONTHS. PATIENT HAS EXPRESSED UNDERSTANDING OF AND WAS IN AGREEMENT WITH TREATMENT PLAN. GIVEN TIME TO ASK QUESTIONS AND EXPRESS CONCERNS. , ISTOP REGISTRY REVIEWED AND DEMONSTRATES COMPLLIANCE. (REF # [id number] ) BRINGS IN MEDICATIONS WHICH IS APPROPRIATE FOR WHAT WAS DISPENSED. RECENT URINE TOXICOLOGY REVIEWED. NO UNAUTHORIZED MEDICATIONS. NO ILLICIT SUBSTANCES AND PRESCRIBED MEDICATIONS WERE PRESENT. PROCEDURE CODES FA211 ESTABILISHED PATIENT [facility] CHARGE DISPOSITION & COMMUNICATION FOLLOW UP 4 MONTHS (REASON: BACK PAIN) ELECTRONICALLY SIGNED BY ZAHRAA CAMARENA ON 11/30/2019 AT 12:45 PM EDT DISCLAIMER : THIS IS A VISIT SUMMARY EXTRACTED FROM THE [employer] CHART. IT IS NOT A COPY OF THE [employer] PROGRESS NOTE. KEYLA
== END ==
LOC: M PAIN 11:00
PROVIDERS: ATTEND Family Medicine
DX: M51.26 Other intervertebral disc displacement, lumbar region (principal); Z79.899 Other long term (current) drug therapy

== ENCOUNTER → 2020-08-25 | Outpatient (CLI) | payer OTHER ==
[~2020-08-25] MED LIST changes: +GABA-282 PO; -GABA-843 PO; +LISI10TA22 PO; -LISI10TA4 PO; -NABU-126 PO; +NABU-51 PO
[2020-08-25 12:37] LABS: BASO % 0.2 % (0.0-1.0); EOS # 0.2 10^3/uL (0.0-0.5); HEMATOCRIT 43.9 % (42.0-52.0); HEMOGLOBIN 14.2 g/dl (13.5-17.5); LYMPH # 1.5 10^3/uL (1.5-5.0); LYMPH % 28.9 % (24.0-44.0); MEAN CORPUSCULAR HEMOGLOBIN 29.8 pg (27.0-33.0); MEAN CORPUSCULAR HGB CONC 32.3 g/dl (32.0-36.5); MEAN CORPUSCULAR VOLUME 92.2 fl (80.0-96.0); MONO # 0.3 10^3/uL (0.0-0.8); NEUTROPHILS # 3.3 10^3/uL (1.5-8.5); NEUTROPHILS % 61.3 % (36.0-66.0); PLATELET COUNT, AUTOMATED 179 10^3/uL (150-450); RED BLOOD COUNT 4.76 10^6/uL (4.30-6.10); WHITE BLOOD COUNT 5.3 10^3/uL (4.0-10.0)
[2020-08-25 13:12] LABS: ALBUMIN 4.4 GM/DL (3.2-5.2); ALT/SGPT 23 U/L (12-78); BILIRUBIN,TOTAL 0.4 MG/DL (0.2-1.0); BLOOD UREA NITROGEN 28 MG/DL (7-18); CALCIUM LEVEL 9.8 MG/DL (8.5-10.1); CARBON DIOXIDE LEVEL 26 MEQ/L (21-32); CHLORIDE LEVEL 108 MEQ/L (98-107); CREATININE FOR GFR 1.07 MG/DL (0.70-1.30); GLOMERULAR FILTRATION RATE > 60.0 (>56); GLUCOSE, FASTING 94 MG/DL (70-100); POTASSIUM SERUM 4.9 MEQ/L (3.5-5.1); SODIUM LEVEL 140 MEQ/L (136-145); TOTAL PROTEIN 6.8 GM/DL (6.4-8.2)
== END ==
LOC: M LAB 11:29
PROVIDERS: ATTEND Urology
DX: C64.2 Malignant neoplasm of left kidney, except renal pelvis (principal)

== ENCOUNTER → 2020-08-30 | Outpatient (CLI) | payer OTHER ==
[~2020-08-30] MED LIST changes: +ISOVUE-370 76% 100ML VIAL As Ordered ONE
--- NOTE | 2020-08-30 10:44 | REP ---
INDICATION: MALIGNANT NEOPLASM OF LEFT KIDNEY,EXCEPT RENAL PELVIS. COMPARISON: Chest CT dated 09/24/2019. TECHNIQUE: Chest CT with IV contrast. FINDINGS: There are 3 small right upper lobe lung nodules measuring 3-4 mm in diameter spanning images 42-44, unchanged from the comparison study, likely granulomas. There are no other lung masses or nodules. There are no infiltrates or pleural effusions. There is no mediastinal, hilar or axillary lymph node enlargement. The thoracic aorta is unremarkable. The cardiac size is normal. There is no pericardial effusion Upper abdomen: The visualized areas of the liver, gallbladder, pancreas spleen are unremarkable. The adrenals are unremarkable. There changes in the upper pole of the right kidney, incompletely demonstrated. Please refer to the abdomen/pelvis CT of 11/10/2019 for further information. There are no lytic, blastic or destructive skeletal changes. IMPRESSION: Stable tiny right upper lobe lung nodules compatible with granulomas. Otherwise, negative CT study of the chest. There changes in the upper pole of the right kidney better demonstrated on the abdomen/pelvis CT of 11/10/2019. <Electronically signed by Connor Bahena > 08/30/20 [id number]
== END ==
LOC: M RAD 08:31
PROVIDERS: ATTEND Nurse Practitioner Family
DX: R91.1 Solitary pulmonary nodule (principal); C64.2 Malignant neoplasm of left kidney, except renal pelvis
CPT/HCPCS: 71260; Q9967